=== PATIENT | female | born 1950 | race Caucasian/White ===

== ENCOUNTER 2022-09-01 11:25 | Outpatient (CLI) | payer MEDICARE, BC, SELFPAY ==
--- NOTE | 2022-09-01 11:30 | CRLHL7_ITS ---
For Patients: As a result of the Cures Act, medical imaging exams and procedure reports are released immediately into your electronic medical record. You may view this report before your referring provider. If you have questions, please contact your health care provider. BILATERAL SCREENING MAMMOGRAM WITH COMPUTER-AIDED DETECTION AND TOMOSYNTHESIS TECHNIQUE: CC and MLO views were obtained. These mammographic images have been obtained using full-field digital technique. These mammographic images were interpreted with the benefit of computer-aided detection. Breast Tomosynthesis was used in this interpretation. COMPARISON FILM: 08/27/21, 08/21/20, 08/02/19. FINDINGS: There are scattered areas of fibroglandular density IMPRESSION: There is no radiographic evidence for malignancy. ASSESSMENT: BI-RADS Category 1: Negative RECOMMENDATION: Routine screening mammogram in 1 year. A lay language report of this examination will be provided to the patient. Sherwin Martin M.D. Diagnostic Radiologist [email or web address] / be/Dictated by: Sherwin Martin MD @ 09/02/2022 8:59:00 AM (Electronically Signed)
== END 2022-09-01 11:26 | disposition home or self-care (01) ==
PROVIDERS: PCP Family Medicine; Visit Provider Family Medicine
DX: Z12.31 Encounter for screening mammogram for malignant neoplasm of breast (principal)
CPT/HCPCS: 77063; 77067

== ENCOUNTER 2023-04-17 09:35 | Outpatient (CLI) | payer MEDICARE, BC, SELFPAY | END 2023-04-17 09:36 | disposition home or self-care (01) | LOC: INJ CL 09:35 | PROVIDERS: PCP Family Medicine; Visit Provider Family Medicine | DX: M51.36 Other intervertebral disc degeneration, lumbar region (principal); M54.16 Radiculopathy, lumbar region | CPT/HCPCS: 64483; J1100; Q9966 ==

== ENCOUNTER 2023-10-07 10:05 | Emergency (ER) | payer MEDICARE, BC, SELFPAY ==
[2023-10-07 10:09] VITALS: BP 148/72; PULSE 74; RESP 18; TEMP 36.9; O2SAT 96; BMI 31.1
--- NOTE | 2023-10-07 10:27 | ED_ITS ---
HPI - General Adult General Time Seen by Provider: 10:28 Date Seen: 10/07/23 Chief complaint: Back Injury/Pain Stated complaint: Fell yesterday, back pain Time Seen by Provider: 10/07/23 10:30 Source: patient Mode of arrival: ambulatory Limitations: no limitations History of Present Illness HPI narrative: The patient is a 71 year white female who had history of lumbar laminectomy about a year and half ago for low back pain and leg pain. The patient reports that she fell yesterday on ice and landed on her buttock area and felt some pain in her low back. She has been stiff, but is able to move about, she is moving she feels a little better. Sitting she has fearing she will freeze up. She has no bowel or bladder incontinence fever chills perineal numbness. Presents ER for evaluation. Related Data Home Medications Medication Instructions Recorded Confirmed cholecalciferol (vitamin D3) 50 2,000 unit PO QDAY 11/10/22 10/07/23 mcg (2,000 unit) capsule gabapentin 300 mg capsule 300 mg PO TID 11/10/22 10/07/23 (Neurontin) losartan 50 mg tablet 50 mg PO DAILY 11/10/22 10/07/23 multivitamin 1 tab PO QAM 11/10/22 01/30/23 psyllium 1 tbsp PO ONCE 11/10/22 01/30/23 rosuvastatin 10 mg tablet 10 mg PO DAILY 11/10/22 10/07/23 chlorhexidine gluconate 0.12 % PO 01/26/23 01/30/23 mouthwash estradiol 0.01% (0.1 mg/gram) vaginal 01/26/23 01/30/23 vaginal cream famotidine 40 mg tablet 40 mg PO DAILY 01/26/23 10/07/23 Previous Rx's Medication Instructions Recorded hydrocodone 5 mg-acetaminophen 325 1 tab PO Q6H PRN pain #14 tabs 10/07/23 mg tablet Allergies Allergy/AdvReac Type Severity Reaction Status Date / Time erythromycin base Allergy Severe Hives Verified 04/17/23 10:10 meloxicam Allergy Verified 04/17/23 10:10 codeine AdvReac Intermediate Gastrointestinal Verified 04/17/23 10:10 Upset lisinopril AdvReac Intermediate Cough Verified 04/17/23 10:10 Review of Systems Status of ROS: Reports: 6 or more systems reviewed and unremarkable except as noted in History and below [facility] Medical History Excessive cerumen in both ear canals ?H61.23 - Impacted cerumen, bilateral (ICD-10) AOM (acute otitis media) ?H66.90 - Otitis media, unspecified, unspecified ear (ICD-10) Hyperlipidemia ?E78.5 - Hyperlipidemia, unspecified (ICD-10) Hypertension ?I10 - Essential (primary) hypertension (ICD-10) Radiculitis with lower extremity symptoms (07/25/21) ?M54.10 - Radiculopathy, site unspecified (ICD-10) Cervical intraepithelial neoplasia grade 1 ?N87.0 - Mild cervical dysplasia (ICD-10) Surgical History History of arthroscopy of right knee (03/22/12) ?Z98.890 - Other specified postprocedural states (ICD-10) History of colposcopy ?Z98.890 - Other specified postprocedural states (ICD-10) History of partial hysterectomy (07/2021) ?Z90.711 - Acquired absence of uterus with remaining cervical stump (ICD-10) History of arthroscopy of right shoulder (07/19/18) ?Z98.890 - Other specified postprocedural states (ICD-10) Family History Sister Uterine cancer Father High blood pressure Diabetes Prostate cancer COPD (chronic obstructive pulmonary disease) Macular degeneration Mother Lung cancer Social History Smoking Status: Never smoker Exam Narrative: Exam Narrative: Objective: Vital signs unremarkable other than slightly elevated blood pressure Alert orient x3 Back exam shows midline surgical scar no marked tenderness or bruising. Pelvis is stable. Lower extremities show normal strength sensation, negative straight leg raise bilaterally. Const: Vital Signs, click to edit/add: Vital Signs - 24 hr 10/07/23 10:09 Temperature 98.5 F Pulse Rate [Right Pulse Oximeter] 74 Respiratory Rate 18 Blood Pressure [Ri ght Upper Arm] 148/72 H Pulse Oximetry 96 Oxygen Delivery Me thod Room Air Course Vital Signs Vital signs: Initial Vital Signs Temperature 98.5 F 10/07/23 10:09 Temperature Source Temporal Artery Scan 10/07/23 10:09 Pulse Rate 74 10/07/23 10:09 Respiratory Rate 18 10/07/23 10:09 Blood Pressure 148/72 H 10/07/23 10:09 Blood Pressure Mean 97 10/07/23 10:09 Blood Pressure Position Sitting 10/07/23 10:09 Pulse Oximetry 96 10/07/23 10:09 Oxygen Delivery Method Room Air 10/07/23 10:09 Vital Signs Temperature 98.5 F 10/07/23 10:09 Pulse Rate 74 10/07/23 10:09 Respiratory Rate 18 10/07/23 10:09 Blood Pressure 148/72 H 10/07/23 10:09 Pulse Oximetry 96 10/07/23 10:09 Oxygen Delivery Method Room Air 10/07/23 10:09 Temperature 98.5 F 10/07/23 10:09 Pulse Rate 74 10/07/23 10:09 Respiratory Rate 18 10/07/23 10:09 Blood Pressure 148/72 H 10/07/23 10:09 Pulse Oximetry 96 10/07/23 10:09 Oxygen Delivery Method Room Air 10/07/23 10:09 Medical Decision Making MDM Narrative Medical decision making narrative: [age] white female who is status post lumbar laminectomy about a year and a half ago, with a fall on the ice landing on her buttocks with low back pain. Rule out compression fracture, rule out muscle strain. Will patient will get an x-ray I think that be reasonable to start with. Disposition pending findings. Addendum 10:46 a.m.: The patient has degenerative scoliosis, facet arthropathy, she has the age-indeterminate L1 compression fracture. I think a CT would be appropriate given her fall. Addendum 12:36 p.m. the patient has a CT evidence of a acute L1 compression fracture. Will send her home with a few [place] tablets to take as needed for pain or discomfort. She should follow up with regular doctor next few days. She has no retropulsed fragments in her CT scan. She has no neurologic changes. Recommend light activity, ice to the back. Follow up in next 3-4 days with primary care. light activity. Discharge Plan Discharge Clinical Impression: Low back pain, Fall, Compression fx, lumbar spine Patient Disposition: Home w/ Parent or Adult Condition: Stable Additional Instructions: Light activity, no repetitive bending, [place] as needed for pain, cautioned about sedative effect, follow-up with primary care doctor in the next 3-4 days for reassessment, he may need some physical therapy at some point as well. Activity Level: Light activity Prescriptions: New hydrocodone-acetaminophen 5-325 mg tablet 1 tab PO Q6H PRN (Reason: pain) Qty: 14 0RF No Action estradiol 0.01 % (0.1 mg/gram) cream vaginal famotidine 40 mg tablet 40 mg PO DAILY chlorhexidine gluconate 0.12 % mouthwash PO cholecalciferol (vitamin D3) 50 mcg (2,000 unit) capsule 2,000 unit PO QDAY rosuvastatin 10 mg tablet 10 mg PO DAILY losartan 50 mg tablet 50 mg PO DAILY psyllium Powder 1 tbsp PO ONCE Rx Instructions: mix into at least 8 oz of water or juice before administering multivitamin Tablet 1 tab PO QAM gabapentin [Neurontin] 300 mg capsule 300 mg PO TID Follow Up/Referrals: Pat Keys DO [Primary Care Provider] - Stand Alone Forms: [facility] Info Inst[facility]
--- NOTE | 2023-10-07 10:27 | CRLHL7_ITS ---
For Patients: As a result of the Century Cures Act, medical imaging exams and procedure reports are released immediately into your electronic medical record. You may view this report before your referring provider. If you have questions, please contact your health care provider. INDICATION: Fall with pain TECHNIQUE: Lumbar spine 3 view. COMPARISON: MRI of lumbar spine report on 03/26/2021 FINDINGS: Age-indeterminate compression fracture deformity of the L1 vertebral body; otherwise, the remaining vertebral bodies are within normal limits in height. Dextroscoliotic curvature of the lumbar spine. Normal lumbar lordosis is maintained. There is trace retrolisthesis of L2 on L3. Multilevel intervertebral disc height loss with associated degenerative endplate changes. Multilevel facet arthropathy. No suspicious osseous lesions. Dictated by Jeffry Myles MD @ 10/07/2023 11:18:02 AM (Electronically Signed)
--- NOTE | 2023-10-07 10:46 | CRLHL7_ITS ---
For Patients: As a result of the Century Cures Act, medical imaging exams and procedure reports are released immediately into your electronic medical record. You may view this report before your referring provider. If you have questions, please contact your health care provider. Indication: L1 compression fracture Technique: Noncontrast axial CT of the lumbar spine with coronal and sagittal reformats. Comparison: Lumbar spine x-ray 10/07/2020 Findings: Dextroconvex curvature, with right lateral listhesis at L3-4 and L4-5. Preserved lumbar lordosis, with trace retrolisthesis at L2-3 and L3-4. Acute L1 superior endplate compression fracture, with minor (2 mm) cortical retropulsion, and no evidence of posterior element involvement. No other acute osseous abnormality identified. Decompressive laminectomy changes at L3-4, L4-5 and L5-S1. Aortoiliac atherosclerotic plaquing. Small dense left renal cysts, potentially hemorrhagic versus proteinaceous. Unremarkable included SI joints. T12-L1, L1-L2: No significant neural foraminal or spinal canal stenosis. L2-L3: Mild diffuse disc bulge. No significant neural foraminal or spinal canal stenosis. L3-L4: Mild diffuse disc bulge, mild facet arthropathy. Moderate right and moderately severe left neural foraminal stenosis. Laminectomy decompression of the spinal canal. L4-L5: Mild diffuse disc bulge, facet arthropathy. Mild left, moderately severe right neural foraminal stenosis. Laminectomy decompression of the spinal canal. L5-S1: Mild diffuse disc bulge, osteophytic endplate ridging, facet arthropathy. No left, mild right neural foraminal narrowing. Laminectomy decompression of the spinal canal. Impression: 1. Acute L1 superior endplate compression fracture with mild vertebral height loss and minimal cortical retropulsion. 2. Lumbar spondylosis, with dextroconvex curvature and multilevel spondylolisthesis as detailed. 3. At L3-4, moderate right and moderately severe left neural foraminal stenosis 4. At L4-5, moderately severe right neural foraminal stenosis. Please note that all CT scans at this facility use dose modulation, iterative reconstruction, and/or weight-based dosing when appropriate to reduce radiation dose to as low as reasonably achievable. Dictated by Alla Sanderson MD @ 10/07/2023 12:31:25 PM (Electronically Signed)
== END 2023-10-07 12:47 | disposition home or self-care (01) ==
PROVIDERS: Emergency Provider Family Medicine; PCP Family Medicine
DX: S32.010A Wedge compression fracture of first lumbar vertebra, initial encounter for closed fracture (principal); W00.9XXA Unspecified fall due to ice and snow, initial encounter
CPT/HCPCS: 72100; 72131; 99284

== ENCOUNTER 2024-01-07 15:15 | Outpatient (CLI) | payer MEDICARE, BC, SELFPAY ==
--- NOTE | 2024-01-07 15:20 | MM_ITS ---
Patient: SUELLEN LUKE Facility:?[facility] Patient ID:?[id number] Site Patient ID:?[id number]. Site :?[id number] Study:?XRay-Breast Bilateral 3D W/CAD-01/07/2024 4:13:11 PM Ordering Physician:?Pat Keys Final Report: BILATERAL SCREENING MAMMOGRAM WITH COMPUTER-AIDED DETECTION AND TOMOSYNTHESIS TECHNIQUE: CC and MLO views were obtained. These mammographic images have been obtained using full-field digital technique. These mammographic images were interpreted with the benefit of computer-aided detection. Breast Tomosynthesis was used in this interpretation. COMPARISON FILM: 09/01/22, 08/27/21, 08/21/20. FINDINGS: There are scattered areas of fibroglandular density IMPRESSION: There is no radiographic evidence for malignancy. ASSESSMENT: BI-RADS Category 1: Negative RECOMMENDATION: Routine screening mammogram in 1 year. A lay language report of this examination will be provided to the patient. Sherwin Martin M.D. Diagnostic Radiologist [email or web address] DSM/sp R& Transcribed: 3:23 p.m. SP/Dictated by: Sherwin Martin MD @ 01/08/2024 12:47:00 PM Signed by:?Sherwin Martin MD @01/08/2024 3:54:41 PM (Electronic Signature)
== END 2024-01-07 15:16 | disposition home or self-care (01) ==
LOC: MAMMO 15:17
PROVIDERS: PCP Family Medicine; Visit Provider Family Medicine
DX: Z12.31 Encounter for screening mammogram for malignant neoplasm of breast (principal)
CPT/HCPCS: 77063; 77067

== ENCOUNTER 2024-05-03 16:58 | Emergency (ER) | payer MEDICARE, BC, SELFPAY ==
[2024-05-03] VITALS (23 sets, daily range): BP systolic 135–181; BP diastolic 56–96; PULSE 68–80; RESP 20; TEMP 37.7; O2SAT 92–97; BMI 30.2
--- NOTE | 2024-05-03 17:24 | CRLHL7_ITS ---
For Patients: As a result of the Century Cures Act, medical imaging exams and procedure reports are released immediately into your electronic medical record. You may view this report before your referring provider. If you have questions, please contact your health care provider. INDICATION: Shortness of breath, cough. TECHNIQUE: Chest 2 views. COMPARISON: None. FINDINGS: Cardiovascular and mediastinum: Heart size and vasculature are normal in caliber and appearance. Hiatal hernia. Lungs and pleural spaces: Patchy bibasilar consolidations. No sign of pleural effusion. No pneumothorax. Bones and soft tissues: No significant findings. IMPRESSION: Patchy bibasilar consolidations, possibly atelectasis or aspiration in this patient with hiatal hernia. Dictated by William Casey MD @ 05/03/2024 6:25:29 PM (Electronically Signed)
--- NOTE | 2024-05-03 17:55 | ED.GENADULT ---
HPI - General Adult General Date Seen: 05/03/24 <Silvia Torres MD - Last Filed: 05/04/24 18:46> Chief complaint: Shortness of Breath/Dyspnea <Silvia Torres MD - Last Filed: 05/04/24 18:46> Stated complaint: shortness of breath <Silvia Torres MD - Last Filed: 05/04/24 18:46> Time Seen by Provider: 05/03/24 16:59 <Silvia Torres MD - Last Filed: 05/04/24 18:46> Source: patient <Silvia Torres MD - Last Filed: 05/04/24 18:46> Mode of arrival: ambulatory <Silvia Torres MD - Last Filed: 05/04/24 18:46> Limitations: no limitations <Silvia Torres MD - Last Filed: 05/04/24 18:46> History of Present Illness HPI narrative: Patient is a 73-year-old woman who presents for evaluation of chills and shortness of breath starting last evening. She had a little bit of a cough last night as well although she feels that that is largely improved. She has not recorded a temperature at home. Her chest has felt somewhat tight at times associated with the sensation of difficulty breathing. She has not noted unusual leg pain or swelling. She does not have a history of congestive heart failure, DVT or PE. She does have a history of chronic pain related to back problems, she says she had a fall last summer and sustained a compression fracture and since that time has had more pain, primarily in the left lumbar region. She does have a back brace that she wears sometimes and notes that that can cause her to feel short of breath but she was not wearing it last night or today. She uses medical marijuana for pain control. She has had some nausea and dry heaves, no vomiting, diarrhea, black or bloody stools. Aside from medical marijuana, she does not smoke. She does not drink. Lives at home with her . <iSlvia Torres MD - Last Filed: 05/04/24 18:46> Related Data Home medications: Home Medications ?Medication ?Instructions ?Recorded ?Confirmed cholecalciferol (vitamin D3) 50 2,000 unit PO DAILY 11/10/22 05/05/24 mcg (2,000 unit) capsule gabapentin 300 mg capsule 300 mg PO TID 11/10/22 05/05/24 (Neurontin) multivitamin 1 tab PO QAM 11/10/22 05/05/24 rosuvastatin 10 mg tablet 10 mg PO HS 11/10/22 05/05/24 estradiol 0.01% (0.1 mg/gram) 1 appful vaginal .MO,FRI 01/26/23 05/05/24 vaginal cream famotidine 40 mg tablet 40 mg PO DAILY PRN 01/26/23 05/05/24 losartan 100 mg tablet 100 mg PO DAILY 05/03/24 05/05/24 ondansetron HCl 4 mg tablet 4 mg PO TID PRN nausea and vomiting 05/05/24 05/05/24 Previous Rx's ?Medication ?Instructions ?Recorded apixaban 5 mg (74 tabs) tablets in See Rx Instructions PO .COMPLEX 05/03/24 a dose pack ([employer] DVT-PE Treat #74 ea 30D Start) <Silvia Torres MD - Last Filed: 05/04/24 18:46> Allergies/adverse reactions: Allergies Allergy/AdvReac Type Severity Reaction Status Date / Time erythromycin base Allergy Severe Hives Verified 05/03/24 19:20 meloxicam Allergy Verified 05/03/24 19:20 codeine AdvReac Intermediate Gastrointestinal Verified 05/03/24 19:20 Upset lisinopril AdvReac Intermediate Cough Verified 05/03/24 19:20 <Silvia Torres MD - Last Filed: 05/04/24 18:46> Review of Systems Status of ROS: Reports: 10 or more systems reviewed and unremarkable except as noted in History and below <Silvia Torres MD - Last Filed: 05/04/24 18:46> [facility] Medical History: Medical History (Updated 05/05/24 @ 12:34 by Eneida Mathews PA-C) DVT (deep venous thrombosis) ?I82.409 - Acute embolism and thrombosis of unspecified deep veins of unspecified lower extremity (ICD-10) Pulmonary emboli ?I26.99 - Other pulmonary embolism without acute cor pulmonale (ICD-10) Excessive cerumen in both ear canals ?H61.23 - Impacted cerumen, bilateral (ICD-10) AOM (acute otitis media) ?H66.90 - Otitis media, unspecified, unspecified ear (ICD-10) Hyperlipidemia ?E78.5 - Hyperlipidemia, unspecified (ICD-10) Hypertension ?I10 - Essential (primary) hypertension (ICD-10) Radiculitis with lower extremity symptoms (07/25/21) ?M54.10 - Radiculopathy, site unspecified (ICD-10) Cervical intraepithelial neoplasia grade 1 ?N87.0 - Mild cervical dysplasia (ICD-10) <Silvia Torres MD - Last Filed: 05/04/24 18:46> Surgical History: Surgical History History of arthroscopy of right knee (03/22/12) ?Z98.890 - Other specified postprocedural states (ICD-10) History of colposcopy ?Z98.890 - Other specified postprocedural states (ICD-10) History of partial hysterectomy (07/2021) ?Z90.711 - Acquired absence of uterus with remaining cervical stump (ICD-10) History of arthroscopy of right shoulder (07/19/18) ?Z98.890 - Other specified postprocedural states (ICD-10) <Silvia Torres MD - Last Filed: 05/04/24 18:46> Family History: Family History Sister Uterine cancer Father High blood pressure Diabetes Prostate cancer COPD (chronic obstructive pulmonary disease) Macular degeneration Mother Lung cancer <Silvia Torres MD - Last Filed: 05/04/24 18:46> Social History: Social History What is your current living situation?: I presently have a place to live Problems where you live: no known problems Problems where you live details: NA In the past 12 months, utilities in danger of being shut off: no In past 12 months, lack of transportation kept you from medical appts, meetings, work, or getting things needed for daily living: no In the past 12 mos, have been you worried that your food would run out before you had money to buy more?: never true In the past 12 mos, the food you bought just didn't last and you didn't have money to buy more?: never true Highest level of school completed/degree received: Bachelor's degree Smoking Status: Never smoker Do you use any of these nicotine containing products: Other How often do you have a drink containing alcohol: never How often do you have six or more drinks on one occasion: Never AUDIT-C Alcohol total score: 0 Non-prescribed substance use: marijuana (any form) Caffeine: Yes (Coffee) How often does anyone, including family, friends and others, physically hurt you: never How often does anyone, including family, friends and others, insult or talk down to you: never How often does anyone, including family, friends and others, threaten you with harm: never How often does anyone, including family, friends and others, scream or curse at you: never service: No <Silvia Torres MD - Last Filed: 05/04/24 18:46> Exam Narrative: Exam Narrative: Vital signs as noted above. In general, an alert, well-appearing patient. Breathing easily. Head: Normocephalic, atraumatic. Eyes: Pupils are equal reactive. Extraocular movements are full. Conjunctivae are normal. ENT: Mucous membranes are moist. Throat is normal. Neck: Supple without lymphadenopathy. Heart: Regular rate and rhythm. No murmur or rub. Lungs: Some crackles noted primarily at the right base. Increased work breathing. Abdomen: Soft and nontender. No organomegaly. Extremities: Well perfused. No edema. No calf tenderness. Pulses intact. Neurologic: Patient is alert and oriented to person and place. Speech is fluent. Face is symmetric. Moves all extremities equally. Affect: Normal. Skin: Warm and dry. Well perfused. <Silvia Torres MD - Last Filed: 05/04/24 18:46> Const: Vital Signs, click to edit/add: Vital Signs - 24 hr 05/03/24 19:00 05/03/24 19:02 05/03/24 19:17 Pulse Rate 70 79 Respiratory Rate Blood Pressure 148/56 H Pulse Oximetry 92 95 Oxygen Delivery Me thod 05/03/24 19:30 05/03/24 19:45 05/03/24 20:00 Pulse Rate 74 75 73 Respiratory Rate Blood Pressure Pulse Oximetry 94 95 92 Oxygen Delivery Me thod 05/03/24 20:02 05/03/24 20:03 05/03/24 20:15 Pulse Rate 75 74 74 Respiratory Rate 20 Blood Pressure 171/72 H Pulse Oximetry 94 93 95 Oxygen Delivery Me thod Room Air 05/03/24 20:30 05/03/24 20:45 05/03/24 21:00 Pulse Rate 73 75 74 Respiratory Rate Blood Pressure Pulse Oximetry 95 92 94 Oxygen Delivery Me thod 05/03/24 21:02 05/03/24 21:15 05/03/24 21:30 Pulse Rate 74 75 78 Respiratory Rate Blood Pressure 148/59 H Pulse Oximetry 93 93 96 Oxygen Delivery Me thod 05/03/24 21:45 05/03/24 22:20 Pulse Rate 74 74 Respiratory Rate 20 Blood Pressure 148/59 H Pulse Oximetry 93 94 Oxygen Delivery Me thod <Silvia Torres MD - Last Filed: 05/04/24 18:46> Vital Signs, click to edit/add: Vital Signs - 24 hr 05/03/24 19:00 05/03/24 19:02 05/03/24 19:17 Pulse Rate 70 79 Respiratory Rate Blood Pressure 148/56 H Pulse Oximetry 92 95 Oxygen Delivery Me thod 05/03/24 19:30 05/03/24 19:45 05/03/24 20:00 Pulse Rate 74 75 73 Respiratory Rate Blood Pressure Pulse Oximetry 94 95 92 Oxygen Delivery Me thod 05/03/24 20:02 05/03/24 20:03 05/03/24 20:15 Pulse Rate 75 74 74 Respiratory Rate 20 Blood Pressure 171/72 H Pulse Oximetry 94 93 95 Oxygen Delivery Me thod Room Air 05/03/24 20:30 05/03/24 20:45 05/03/24 21:00 Pulse Rate 73 75 74 Respiratory Rate Blood Pressure Pulse Oximetry 95 92 94 Oxygen Delivery Me thod 05/03/24 21:02 05/03/24 21:15 05/03/24 21:30 Pulse Rate 74 75 78 Respiratory Rate Blood Pressure 148/59 H Pulse Oximetry 93 93 96 Oxygen Delivery Me thod 05/03/24 21:45 05/03/24 22:20 Pulse Rate 74 74 Respiratory Rate 20 Blood Pressure 148/59 H Pulse Oximetry 93 94 Oxygen Delivery Me thod <Jillian Flor MD - Last Filed: 05/03/24 22:04> Documenting provider has reviewed patient's vital signs: yes <Silvia Torres MD - Last Filed: 05/04/24 18:46> Course Course ED Course: An EKG shows a sinus rhythm, ventricular rate of 74. No acute ST segment changes, some artifact in leads 2 and 3 limits interpretation in those leads. Troponin is negative. We labs were notable for a normal lactate, and normal BNP, CRP of 4.3 and elevated D-dimer of 3.24. Troponin was 0. I did a chest x-ray initially which was notable for some patchy bibasilar infiltrate, read as follows by Radiology:FINDINGS: Cardiovascular and mediastinum: Heart size and vasculature are normal in caliber and appearance. Hiatal hernia. Lungs and pleural spaces: Patchy bibasilar consolidations. No sign of pleural effusion. No pneumothorax. Bones and soft tissues: No significant findings. IMPRESSION: Patchy bibasilar consolidations, possibly atelectasis or aspiration in this patient with hiatal hernia. However, D-dimer was markedly elevated at over 3, so I did elect to do a CT scan with contrast. This shows by my review bilateral pulmonary emboli, greatest in the right lower lobe. Radiology read this as moderate clot burden with some ground-glass changes in the right lower lung consistent with evolving pulmonary infarcts. I discussed this diagnosis at length with patient and her . Her PESI score puts her at low risk, class 2. She does not have any high risk features, has not been requiring any pain medication or oxygen. Initially she thought she wanted to stay in hospital due to shortness of breath, but then changed her mind and decided she would rather go home. Medically I think this is not unreasonable. I did order bilateral lower extremity Dopplers which are pending at this time. If she has residual clot in her legs then I do think that would change my recommendation to inpatient treatment with IV heparin. If those are negative plan would be to go home on Eliquis with close outpatient follow-up. Signed out to Dr. Flor for final disposition and plan. <Silvia Torres MD - Last Filed: 05/04/24 18:46> Reevaluation(s) Additional Reevaluation(s): 2099 - I took over care from Dr. Torres. At 2129 I personally reviewed and interpreted bilateral lower extremity ultrasound and discussed results with radiologist which demonstrates acute occlusive DVT within the right popliteal vein. No evidence of DVT in left lower extremity. Patient remains hemodynamically stable. I discussed patient management with internal medicine hospitalist who recommends discharge with dose of Lovenox and prescription for oral anticoagulation. Patient does not meet inpatient criteria however did offer observation admission for IV heparin. I discussed results with patient and family, discussed observation versus discharge home. Patient prefers to be discharged home. Patient remains hemodynamically stable, no chest pain, no shortness of breath, no tachycardia, no hypoxia. Patient is able to ambulate without difficulty. 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 Recommend close outpatient follow-up with her primary care provider. Return precautions discussed. Patient understands and agrees the plan. <Jillian Flor MD - Last Filed: 05/03/24 22:04> Vital Signs Vital signs: Initial Vital Signs Temperature 99.9 F H 05/03/24 17:07 Temperature Source Temporal Artery Scan 05/03/24 17:07 Pulse Rate 80 05/03/24 17:07 Respiratory Rate 20 05/03/24 17:07 Blood Pressure 181/93 H 05/03/24 17:07 Blood Pressure Mean 122 H 05/03/24 17:07 Pulse Oximetry 97 05/03/24 17:07 Oxygen Delivery Method Room Air 05/03/24 17:07 Vital Signs Temperature 99.9 F H 05/03/24 17:07 Pulse Rate 80 05/03/24 17:07 Respiratory Rate 20 05/03/24 17:07 Blood Pressure 181/93 H 05/03/24 17:07 Pulse Oximetry 97 05/03/24 17:07 Oxygen Delivery Method Room Air 05/03/24 17:07 Temperature 99.9 F H 05/03/24 17:07 Pulse Rate 74 05/03/24 22:20 Respiratory Rate 20 05/03/24 22:20 Blood Pressure 148/59 H 05/03/24 22:20 Pulse Oximetry 94 05/03/24 22:20 Oxygen Delivery Method Room Air 05/03/24 20:02 <Silvia Torres MD - Last Filed: 05/04/24 18:46> Initial Vital Signs Temperature 99.9 F H 05/03/24 17:07 Temperature Source Temporal Artery Scan 05/03/24 17:07 Pulse Rate 80 05/03/24 17:07 Respiratory Rate 20 05/03/24 17:07 Blood Pressure 181/93 H 05/03/24 17:07 Blood Pressure Mean 122 H 05/03/24 17:07 Pulse Oximetry 97 05/03/24 17:07 Oxygen Delivery Method Room Air 05/03/24 17:07 Vital Signs Temperature 99.9 F H 05/03/24 17:07 Pulse Rate 80 05/03/24 17:07 Respiratory Rate 20 05/03/24 17:07 Blood Pressure 181/93 H 05/03/24 17:07 Pulse Oximetry 97 05/03/24 17:07 Oxygen Delivery Method Room Air 05/03/24 17:07 Temperature 99.9 F H 05/03/24 17:07 Pulse Rate 74 05/03/24 22:20 Respiratory Rate 20 05/03/24 22:20 Blood Pressure 148/59 H 05/03/24 22:20 Pulse Oximetry 94 05/03/24 22:20 Oxygen Delivery Method Room Air 05/03/24 20:02 <Jillian Flor MD - Last Filed: 05/03/24 22:04> Medications Administered Medications: Discontinued Medications Generic Name Dose Route Start Last Admin Trade Name Freq PRN Reason Stop Dose Admin Enoxaparin Sodium 74.843 mg 05/03/24 21:56 05/03/24 22:25 Enoxaparin 80 Mg/0.8 Ml Inj SUBCUT 05/03/24 21:57 74.843 mg ONCE STA Administration <Silvia Torres MD - Last Filed: 05/04/24 18:46> Discontinued Medications Generic Name Dose Route Start Last Admin Trade Name Freq PRN Reason Stop Dose Admin Enoxaparin Sodium 74.843 mg 05/03/24 21:56 05/03/24 22:25 Enoxaparin 80 Mg/0.8 Ml Inj SUBCUT 05/03/24 21:57 74.843 mg ONCE STA Administration <Jillian Flor MD - Last Filed: 05/03/24 22:04> Medical Decision Making Lab Data Labs: Lab Results 05/03/24 05/03/24 05/03/24 Range/Units 17:25 17:40 17:40 WBC 14.11 H (4.50-11.00) K/uL RBC 4.86 (4.00-5.20) m/uL Hgb 13.5 (12.0-16.0) gm/dL Hct 42.6 (33.0-51.0) % MCV 88 (80-100) fL MCH 28 (26-34) pg MCHC 32 (32-36) gm/dL RDW Coeff of Ursula 13.5 (11.5-15.5) % Plt Count 240 (140-440) K/uL Neut % (Auto) 83.3 H (42.0-72.0) % Lymph % (Auto) 8.8 L (20-44) % [place] % (Auto) 7.1 (0.0-11.0) % Eos % (Auto) 0.3 (0.0-7.0) % Baso % (Auto) 0.2 (0.0-3.0) % Neut # (Auto) 11.80 H (1.7-7.0) K/uL Lymph # (Auto) 1.20 (0.90-2.90) K/uL [place] # (Auto) 1.00 H (0.00-0.90) K/UL Eos # (Auto) 0.00 (0.00-0.50) K/uL Baso # (Auto) 0.00 (0.00-0.30) K/uL Abs Immat Gran (auto) 0.00 (0.00-0.30) K/uL Imm/Tot Granulo (auto) 0.3 % D-Dimer Quant (PE/DVT) 3.24 H (0.00-0.50) ug/ml Sodium 137 (135-149) mmol/L Potassium 3.8 (3.6-5.1) mmol/L Chloride 103 (96-114) mmol/L Carbon Dioxide 25 (20-32) mmol/L Anion Gap 9 (7-15) mEq/L BUN 11 (7-30) mg/dL Creatinine 0.8 (0.5-1.5) mg/dL Estimated Creat Clear 40.22 Estimated GFR 78 ml/min Glucose 129 H (60-115) mg/dL Lactate 1.0 (0.5-1.9) mmol/L Calcium 9.4 (8.4-10.6) mg/dL C-Reactive Protein 4.3 H Cancelled (0.5-1.0) mg/dL NT-Pro-B Natriuret Pep 170 pg/mL TSH (0.270-4.200) uIU/mL Urine Color (Yellow) Urine Appearance (Clear) Urine pH (5.0-8.5) Ur Specific [place] (1.000-1.030) Urine Protein (Negative) Urine Glucose (UA) (Negative) Urine Ketones (Negative) Urine Blood (Negative) Urine Nitrite (Negative) Urine Bilirubin (Negative) Urine Urobilinogen (0.2-1.0) Ur Leukocyte Esterase (Negative) Urine RBC (0-2) Urine WBC (0-5) Ur Squamous Epith Cells (None-Few) Urine Bacteria (None) Fine Granular Casts (None) POC Troponin I 0.00 L (0.01-0.04) ng/ml 05/03/24 05/03/24 Range/Units 17:40 19:14 WBC (4.50-11.00) K/uL RBC (4.00-5.20) m/uL Hgb (12.0-16.0) gm/dL Hct (33.0-51.0) % MCV (80-100) fL MCH (26-34) pg MCHC (32-36) gm/dL RDW Coeff of Ursula (11.5-15.5) % Plt Count (140-440) K/uL Neut % (Auto) (42.0-72.0) % Lymph % (Auto) (20-44) % [place] % (Auto) (0.0-11.0) % Eos % (Auto) (0.0-7.0) % Baso % (Auto) (0.0-3.0) % Neut # (Auto) (1.7-7.0) K/uL Lymph # (Auto) (0.90-2.90) K/uL [place] # (Auto) (0.00-0.90) K/UL Eos # (Auto) (0.00-0.50) K/uL Baso # (Auto) (0.00-0.30) K/uL Abs Immat Gran (auto) (0.00-0.30) K/uL Imm/Tot Granulo (auto) % D-Dimer Quant (PE/DVT) (0.00-0.50) ug/ml Sodium (135-149) mmol/L Potassium (3.6-5.1) mmol/L Chloride (96-114) mmol/L Carbon Dioxide (20-32) mmol/L Anion Gap (7-15) mEq/L BUN (7-30) mg/dL Creatinine (0.5-1.5) mg/dL Estimated Creat Clear Estimated GFR ml/min Glucose (60-115) mg/dL Lactate (0.5-1.9) mmol/L Calcium (8.4-10.6) mg/dL C-Reactive Protein (0.5-1.0) mg/dL NT-Pro-B Natriuret Pep Cancelled pg/mL TSH 1.250 (0.270-4.200) uIU/mL Urine Color Yellow (Yellow) Urine Appearance Clear (Clear) Urine pH 6.0 (5.0-8.5) Ur Specific [place] 1.020 (1.000-1.030) Urine Protein Trace A (Negative) Urine Glucose (UA) Negative (Negative) Urine Ketones 1+ A (Negative) Urine Blood 2+ A (Negative) Urine Nitrite Negative (Negative) Urine Bilirubin Negative (Negative) Urine Urobilinogen 0.2 (0.2-1.0) Ur Leukocyte Esterase Negative (Negative) Urine RBC 0-2 (0-2) Urine WBC 10-25 A (0-5) Ur Squamous Epith Cells Moderate A (None-Few) Urine Bacteria Moderate A (None) Fine Granular Casts Few A (None) POC Troponin I (0.01-0.04) ng/ml <Silvia Torres MD - Last Filed: 05/04/24 18:46> Lab Results 05/03/24 05/03/24 05/03/24 Range/Units 17:25 17:40 17:40 WBC 14.11 H (4.50-11.00) K/uL RBC 4.86 (4.00-5.20) m/uL Hgb 13.5 (12.0-16.0) gm/dL Hct 42.6 (33.0-51.0) % MCV 88 (80-100) fL MCH 28 (26-34) pg MCHC 32 (32-36) gm/dL RDW Coeff of Ursula 13.5 (11.5-15.5) % Plt Count 240 (140-440) K/uL Neut % (Auto) 83.3 H (42.0-72.0) % Lymph % (Auto) 8.8 L (20-44) % [place] % (Auto) 7.1 (0.0-11.0) % Eos % (Auto) 0.3 (0.0-7.0) % Baso % (Auto) 0.2 (0.0-3.0) % Neut # (Auto) 11.80 H (1.7-7.0) K/uL Lymph # (Auto) 1.20 (0.90-2.90) K/uL [place] # (Auto) 1.00 H (0.00-0.90) K/UL Eos # (Auto) 0.00 (0.00-0.50) K/uL Baso # (Auto) 0.00 (0.00-0.30) K/uL Abs Immat Gran (auto) 0.00 (0.00-0.30) K/uL Imm/Tot Granulo (auto) 0.3 % D-Dimer Quant (PE/DVT) 3.24 H (0.00-0.50) ug/ml Sodium 137 (135-149) mmol/L Potassium 3.8 (3.6-5.1) mmol/L Chloride 103 (96-114) mmol/L Carbon Dioxide 25 (20-32) mmol/L Anion Gap 9 (7-15) mEq/L BUN 11 (7-30) mg/dL Creatinine 0.8 (0.5-1.5) mg/dL Estimated Creat Clear 40.22 Estimated GFR 78 ml/min Glucose 129 H (60-115) mg/dL Lactate 1.0 (0.5-1.9) mmol/L Calcium 9.4 (8.4-10.6) mg/dL C-Reactive Protein 4.3 H Cancelled (0.5-1.0) mg/dL NT-Pro-B Natriuret Pep 170 pg/mL TSH (0.270-4.200) uIU/mL Urine Color (Yellow) Urine Appearance (Clear) Urine pH (5.0-8.5) Ur Specific [place] (1.000-1.030) Urine Protein (Negative) Urine Glucose (UA) (Negative) Urine Ketones (Negative) Urine Blood (Negative) Urine Nitrite (Negative) Urine Bilirubin (Negative) Urine Urobilinogen (0.2-1.0) Ur Leukocyte Esterase (Negative) Urine RBC (0-2) Urine WBC (0-5) Ur Squamous Epith Cells (None-Few) Urine Bacteria (None) Fine Granular Casts (None) POC Troponin I 0.00 L (0.01-0.04) ng/ml 05/03/24 05/03/24 Range/Units 17:40 19:14 WBC (4.50-11.00) K/uL RBC (4.00-5.20) m/uL Hgb (12.0-16.0) gm/dL Hct (33.0-51.0) % MCV (80-100) fL MCH (26-34) pg MCHC (32-36) gm/dL RDW Coeff of Ursula (11.5-15.5) % Plt Count (140-440) K/uL Neut % (Auto) (42.0-72.0) % Lymph % (Auto) (20-44) % [place] % (Auto) (0.0-11.0) % Eos % (Auto) (0.0-7.0) % Baso % (Auto) (0.0-3.0) % Neut # (Auto) (1.7-7.0) K/uL Lymph # (Auto) (0.90-2.90) K/uL [place] # (Auto) (0.00-0.90) K/UL Eos # (Auto) (0.00-0.50) K/uL Baso # (Auto) (0.00-0.30) K/uL Abs Immat Gran (auto) (0.00-0.30) K/uL Imm/Tot Granulo (auto) % D-Dimer Quant (PE/DVT) (0.00-0.50) ug/ml Sodium (135-149) mmol/L Potassium (3.6-5.1) mmol/L Chloride (96-114) mmol/L Carbon Dioxide (20-32) mmol/L Anion Gap (7-15) mEq/L BUN (7-30) mg/dL Creatinine (0.5-1.5) mg/dL Estimated Creat Clear Estimated GFR ml/min Glucose (60-115) mg/dL Lactate (0.5-1.9) mmol/L Calcium (8.4-10.6) mg/dL C-Reactive Protein (0.5-1.0) mg/dL NT-Pro-B Natriuret Pep Cancelled pg/mL TSH 1.250 (0.270-4.200) uIU/mL Urine Color Yellow (Yellow) Urine Appearance Clear (Clear) Urine pH 6.0 (5.0-8.5) Ur Specific [place] 1.020 (1.000-1.030) Urine Protein Trace A (Negative) Urine Glucose (UA) Negative (Negative) Urine Ketones 1+ A (Negative) Urine Blood 2+ A (Negative) Urine Nitrite Negative (Negative) Urine Bilirubin Negative (Negative) Urine Urobilinogen 0.2 (0.2-1.0) Ur Leukocyte Esterase Negative (Negative) Urine RBC 0-2 (0-2) Urine WBC 10-25 A (0-5) Ur Squamous Epith Cells Moderate A (None-Few) Urine Bacteria Moderate A (None) Fine Granular Casts Few A (None) POC Troponin I (0.01-0.04) ng/ml <Jillian Flor MD - Last Filed: 05/03/24 22:04> Discharge Plan Discharge Clinical Impression: Pulmonary emboli, DVT (deep venous thrombosis) <Silvia Torres MD - Last Filed: 05/04/24 18:46> Patient Disposition: Home, Self-Care <Silvia Torres MD - Last Filed: 05/04/24 18:46> Condition: Stable <Silvia Torres MD - Last Filed: 05/04/24 18:46> Instructions: Pulmonary Embolism (ED), Deep Vein Thrombosis (ED) <Silvia Torres MD - Last Filed: 05/04/24 18:46> Additional Instructions: Anticoagulation as prescribed. You should follow-up with your primary doctor in the coming week for recheck. If at any time you have severe shortness of breath, severe pain, new symptoms such as fevers, lightheadedness or fainting, or other worsening, return to the emergency department. <Silvia Torres MD - Last Filed: 05/04/24 18:46> Prescriptions: New Eliquis DVT-PE Treat 30D Start 5 mg (74 tabs) tablets,dose pack See Rx Instructions .ROUTE .COMPLEX Qty: 74 0RF Rx Instructions: orally per package directions No Action estradiol 0.01 % (0.1 mg/gram) cream 1 appful vaginal .MO,FRI famotidine 40 mg tablet 40 mg PO DAILY PRN cholecalciferol (vitamin D3) 50 mcg (2,000 unit) capsule 2,000 unit PO DAILY rosuvastatin 10 mg tablet 10 mg PO HS multivitamin Tablet 1 tab PO QAM gabapentin [Neurontin] 300 mg capsule 300 mg PO TID losartan 100 mg tablet 100 mg PO DAILY ondansetron HCl 4 mg tablet 4 mg PO TID PRN (Reason: nausea and vomiting) <Silvia Torres MD - Last Filed: 05/04/24 18:46> Follow Up/Referrals: Pat Keys DO [Primary Care Provider] - <Silvia Torres MD - Last Filed: 05/04/24 18:46> Stand Alone Forms: [facility] Info Instructions <Silvia Torres MD - Last Filed: 05/04/24 18:46>
[2024-05-03 17:58] LABS: Basophils Percent Auto 0.2 % (0.0-3.0); Eosinophils Percent Auto 0.3 % (0.0-7.0); Hematocrit 42.6 % (33.0-51.0); Hemoglobin* 13.5 gm/dL (12.0-16.0); Immature Granulocytes Pct Auto 0.3 %; Lymphocytes Percent Auto 8.8 % (20-44); Mean Corpuscular HGB Conc 32 gm/dL (32-36); Mean Corpuscular Hemoglobin 28 pg (26-34); Mean Corpuscular Volume 88 fL (80-100); Monocytes Percent Auto 7.1 % (0.0-11.0); Neutrophils Percent Auto 83.3 % (42.0-72.0); Platelet Count* 240 K/uL (140-440); RDW Coefficient of Variation % 13.5 % (11.5-15.5); Red Blood Count 4.86 m/uL (4.00-5.20); White Blood Count* 14.11 K/uL (4.50-11.00)
[2024-05-03 18:24] LABS: Chloride* 103 mmol/L (96-114); Potassium* 3.8 mmol/L (3.6-5.1); Sodium* 137 mmol/L (135-149)
[2024-05-03 18:27] LABS: Anion Gap 9 mEq/L (7-15); Blood Urea Nitrogen* 11 mg/dL (7-30); Carbon Dioxide* 25 mmol/L (20-32); Creatinine* 0.8 mg/dL (0.5-1.5); Est. Creatinine Clearance* 40.22; Estimated Glomerular Filt Rate 78 ml/min
[2024-05-03 18:28] LABS: Calcium* 9.4 mg/dL (8.4-10.6); D Dimer Quantitative* 3.24 ug/ml (0.00-0.50); Glucose* 129 mg/dL (60-115); Slide Review Reflex No
[2024-05-03 18:30] LABS: C Reactive Protein* 4.3 mg/dL (0.5-1.0)
--- NOTE | 2024-05-03 18:32 | CRLHL7_ITS ---
For Patients: As a result of the Century Cures Act, medical imaging exams and procedure reports are released immediately into your electronic medical record. You may view this report before your referring provider. If you have questions, please contact your health care provider. INDICATION: Shortness of breath, elevated D-dimer. TECHNIQUE: CT chest PE was acquired with 95 cc Isovue 370 IV contrast. COMPARISON: None. FINDINGS: Heart and vasculature: Contrast opacification of the pulmonary arterial tree is adequate. Moderate burden of bilateral acute pulmonary emboli within scattered lobar, segmental, and subsegmental branches, right greater than left. The largest clot burden is within the right lower lobe. No evidence of right heart strain. Mild cardiomegaly. No pericardial effusion. Thoracic aorta and pulmonary artery are normal in caliber. Lungs and pleura: Large area of ground-glass opacity within the right lower lobe base. Mild dependent atelectasis versus scarring in left lower lobe base. No pleural effusion or pneumothorax. Lymph nodes/mediastinum: No mediastinal, hilar, or axillary adenopathy. Large hiatal hernia. Chest wall: No masses. Upper abdomen: Indeterminate 1 cm hyperdense lesion arising from the left kidney superior pole. Bones: Chronic-appearing [id number] L1 compression fracture. No acute findings. IMPRESSION: 1. Moderate burden of bilateral acute pulmonary emboli, greatest burden within the right lower lobe. No CT evidence of right heart strain. Large ground-glass opacity within the right lower lobe base likely represents developing pulmonary infarct. 2. Indeterminate 1 cm hyperdense lesion arising from the left kidney superior pole. Recommend dedicated outpatient renal CT or MRI for further characterization. 3. Large hiatal hernia. Findings discussed with Dr. Torres at 6:01 PM PST on 05/03/2024. Please note that all CT scans at this facility use dose modulation, iterative reconstruction, and/or weight-based dosing when appropriate to reduce radiation dose to as low as reasonably achievable. Dictated by Rony Vela MD @ 05/03/2024 8:02:21 PM (Electronically Signed)
[2024-05-03 18:39] LABS: NT Pro B Type NatriureticPept* 170 pg/mL
[2024-05-03 19:23] LABS: Appearance Urine Clear (Clear); Bilirubin Urine Negative (Negative); Blood Urine 2+ (Negative); Color Urine Yellow (Yellow); Glucose Urine Negative (Negative); Ketones Urine 1+ (Negative); Leukocyte Esterase Urine Negative (Negative); Nitrite Urine Negative (Negative); Protein Urine Trace (Negative); Urobilinogen Urine 0.2 (0.2-1.0)
--- NOTE | 2024-05-03 20:05 | CRLHL7_ITS ---
For Patients: As a result of the Century Cures Act, medical imaging exams and procedure reports are released immediately into your electronic medical record. You may view this report before your referring provider. If you have questions, please contact your health care provider. INDICATION: History of pulmonary embolism. Evaluate for deep vein thrombus. TECHNIQUE: Bilateral lower extremity Doppler venous ultrasound examination was performed. Grayscale and color Doppler images were obtained. COMPARISON: None. FINDINGS: RIGHT LOWER EXTREMITY: Common femoral vein: Fully compressible. No deep vein thrombus. Normal flow and response to augmentation on color Doppler imaging. Superficial femoral vein: Fully compressible. No deep vein thrombus. Normal flow on color Doppler imaging. Deep femoral vein: No deep vein thrombus Popliteal vein: Noncompressible due to an intraluminal filling defect. Lower calf: The visualized posterior tibial and peroneal veins are fully compressible. No deep vein thrombus. Normal flow and response to augmentation on color Doppler imaging. Superficial veins: The superficial veins, including the greater saphenous vein, remain patent and are fully compressible. Soft tissues: No popliteal fossa fluid collection identified. LEFT LOWER EXTREMITY: Common femoral vein: Fully compressible. No deep vein thrombus. Normal flow and response to augmentation on color Doppler imaging. Superficial femoral vein: Fully compressible. No deep vein thrombus. Normal flow on color Doppler imaging. Deep femoral vein: No deep vein thrombus Popliteal vein: Fully compressible. No deep vein thrombus. Normal flow on color Doppler imaging. Lower calf: The visualized posterior tibial and peroneal veins are fully compressible. No deep vein thrombus. Normal flow and response to augmentation on color Doppler imaging. Superficial veins: The superficial veins, including the greater saphenous vein, remain patent and are fully compressible. Soft tissues: No popliteal fossa fluid collection identified. IMPRESSION: Acute occlusive deep vein thrombus within the right popliteal vein. Dictated by Betito Cook MD @ 05/03/2024 9:29:00 PM (Electronically Signed)
[2024-05-03 20:10] LABS: Bacteria Urine Moderate; Fine Granular Casts Urine Few; RBC Urine 0-2 (0-2); Squamous Epithelial Cell Urine Moderate (None-Few)
[2024-05-03] MEDS: ENOXAPARIN 80 MG/0.8 ML INJ 74.843 MG SUBCUT (22:25)
== END 2024-05-03 22:30 | disposition home or self-care (01) ==
PROVIDERS: Emergency Provider Emergency Medicine; PCP Family Medicine
DX: J18.9 Pneumonia, unspecified organism (principal); I26.99 Other pulmonary embolism without acute cor pulmonale
CPT/HCPCS: 36415; 71046; 71275; 80048; 81001; 83605; 83880; 84443; 84484; 85025; 85379; 86140; 87040; 87086; 93005; 93970; 99284; 99285; J1650; Q9967

== ENCOUNTER 2024-05-04 08:18 | Emergency (ER) | payer MEDICARE, BC, SELFPAY ==
[2024-05-04] VITALS (42 sets, daily range): BP systolic 122–161; BP diastolic 57–72; PULSE 66–81; RESP 10–18; TEMP 37.1; O2SAT 88–97; BMI 30.2
--- NOTE | 2024-05-04 08:24 | ED_ITS ---
HPI - General Adult General Date Seen: 05/04/24 Chief complaint: Nausea/Vomiting Stated complaint: Shortness of breath, nauseous Time Seen by Provider: 05/04/24 08:23 History of Present Illness HPI narrative: 73-year-old female with history of chronic low back pain and lumbar compression fracture ( treated with medical marijuana), hypertension, hyperlipidemia, cervical dysplasia,, she was seen in the ER yesterday on 05/03. She had presented for chills and shortness of breath , coughbeginning yesterday evening. in the ER yesterday vital signs showed blood pressure 181/93, pulseox 94-97, pulse rate in the 70s. Workup in ER yesterday: WBC 14.1, hemoglobin 13.5, platelet 240 sodium 137, potassium 3.8, chloride 103, bicarb 25, BUN 11, creatinine 0.8 CRP 4.3 BNP 170 urinalysis 10-25 WBC, moderate squames, negative nitrite, negative leukocyte esterase, 0-2 RBC TSH 1.2 Lower Extremity US IMPRESSION: Acute occlusive deep vein thrombus within the right popliteal vein. XR Chest IMPRESSION: Patchy bibasilar consolidations, possibly atelectasis or aspiration in this patient with hiatal hernia. CTA PE Chest: IMPRESSION: 1. Moderate burden of bilateral acute pulmonary emboli, greatest burden within the right lower lobe. No CT evidence of right heart strain. Large ground-glass opacity within the right lower lobe base likely represents developing pulmonary infarct. 2. Indeterminate 1 cm hyperdense lesion arising from the left kidney superior pole. Recommend dedicated outpatient renal CT or MRI for further characterization. 3. Large hiatal hernia. history from the patient is that She does have chronic low back pain, chronic microscopic hematuria. She normally wears a brace for her low back pain and feels short of breath when she wears the brace because it compresses her diaphragm and ribs. She knows that she has been short of breath during. When she wears the brace, at least since last October. However this week she has noted shortness of breath even when she is not wearing the brace. Since Thursday she has been sick. Thursday evening she began to feel unwell with body aches, headache, chills. She also developed a nonproductive cough. She has also been nauseous since yesterday. No vomiting. No diarrhea. She has increased pain in her low back as well as body aches and also in particular she is having pain in her right flank/ lower ribs and down into her right low back. she was seen In the ER yesterday. it seems like her recollection of events is little bit cloudy and unclear. She had blood clots possibly in her leg or her liver, she can not remember where. They discussed possible admission but ultimately since it would be an observation she decided to go home. She knew she was feeling weak and nauseous since she was not sure she would be able to manage home but she did not want stay in the hospital with an undetermined observation bill. She went home. Overnight she had ongoing chills and nausea. She is having bad pain in her right side of her body (in the right flank radiating down down toward the right hip and sometimes she do across to her midportion of her low back ). She is not really having chest pain or rib pain. She still mildly short of breath. Still occasional cough, nonproductive. Her body hurts to cough. she has had chills but no objective fevers. She has been nauseous with no vomiting. No diarrhea. She has not really made any urine aside from a few drops of urine yesterday in the ER. She is just feeling too weak at home and to nauseous so had to come back here to the ER this morning. She received a shot of Lovenox yesterday in the ER but has not had time to get to the pharmacy this morning to get her Eliquis. Although yesterday she said she had not had any recent travel she does recall a plane flight to [place] and back about 6 weeks ago around a week a mother's Day. Otherwise no recent immobilization. She also recalls that she was having some blood in her urine last winter so was referred to urologist ( in [place] ). She apparently had an outpatient workup that included a cystoscopy and biopsies of her kidneys from inside that were apparently benign. She had a few weeks of urinary tract symptoms after that procedure but then got better. She is not currently having any urgency, frequency, dysuria, or visible hematuria. Related Data Home Medications ?Medication ?Instructions ?Recorded ?Confirmed cholecalciferol (vitamin D3) 50 2,000 unit PO QDAY 11/10/22 05/03/24 mcg (2,000 unit) capsule gabapentin 300 mg capsule 300 mg PO TID 11/10/22 05/03/24 (Neurontin) losartan 50 mg tablet 50 mg PO DAILY 11/10/22 10/07/23 multivitamin 1 tab PO QAM 11/10/22 05/03/24 psyllium 1 tbsp PO ONCE 11/10/22 05/03/24 rosuvastatin 10 mg tablet 10 mg PO DAILY 11/10/22 05/03/24 chlorhexidine gluconate 0.12 % PO 01/26/23 01/30/23 mouthwash estradiol 0.01% (0.1 mg/gram) vaginal 01/26/23 01/30/23 vaginal cream famotidine 40 mg tablet 40 mg PO DAILY 01/26/23 05/03/24 losartan 100 mg tablet 100 mg PO DAILY 05/03/24 05/03/24 Previous Rx's ?Medication ?Instructions ?Recorded hydrocodone 5 mg-acetaminophen 325 1 tab PO Q6H PRN pain #14 tabs 10/07/23 mg tablet apixaban 5 mg (74 tabs) tablets in See Rx Instructions PO .COMPLEX 05/03/24 a dose pack (Osmosis DVT-PE Treat #74 ea 30D Start) ondansetron HCl 4 mg tablet 4 mg PO TID #10 tabs 05/04/24 Allergies Allergy/AdvReac Type Severity Reaction Status Date / Time erythromycin base Allergy Severe Hives Verified 05/03/24 19:20 meloxicam Allergy Verified 05/03/24 19:20 codeine AdvReac Intermediate Gastrointestinal Verified 05/03/24 19:20 Upset lisinopril AdvReac Intermediate Cough Verified 05/03/24 19:20 [facility] Medical History Excessive cerumen in both ear canals ?H61.23 - Impacted cerumen, bilateral (ICD-10) AOM (acute otitis media) ?H66.90 - Otitis media, unspecified, unspecified ear (ICD-10) Hyperlipidemia ?E78.5 - Hyperlipidemia, unspecified (ICD-10) Hypertension ?I10 - Essential (primary) hypertension (ICD-10) Radiculitis with lower extremity symptoms (07/25/21) ?M54.10 - Radiculopathy, site unspecified (ICD-10) Cervical intraepithelial neoplasia grade 1 ?N87.0 - Mild cervical dysplasia (ICD-10) Surgical History History of arthroscopy of right knee (03/22/12) ?Z98.890 - Other specified postprocedural states (ICD-10) History of colposcopy ?Z98.890 - Other specified postprocedural states (ICD-10) History of partial hysterectomy (07/2021) ?Z90.711 - Acquired absence of uterus with remaining cervical stump (ICD-10) History of arthroscopy of right shoulder (07/19/18) ?Z98.890 - Other specified postprocedural states (ICD-10) Family History Sister Uterine cancer Father High blood pressure Diabetes Prostate cancer COPD (chronic obstructive pulmonary disease) Macular degeneration Mother Lung cancer Social History Smoking Status: Current some day smoker Do you use any of these nicotine containing products: Other How often do you have a drink containing alcohol: never How often do you have six or more drinks on one occasion: Never AUDIT-C Alcohol total score: 0 Non-prescribed substance use: marijuana (any form) Exam Narrative: Exam Narrative: Constitutional: Appears well-developed and well-nourished. Alert. Conversant. Tired appearing and looks worn out, but overall, not overly toxic appearing. HENT: Head: Atraumatic. Nose: Nose normal. Mouth/Throat: Oral mucosa is clear but dry. no trismus. Pharynx normal. Tonsils symmetric. No tonsillar enlargement, erythema, or exudate. Eyes: Conjunctivae normal. EOM normal. Pupils equal, round, and reactive to light. No scleral icterus. Neck: Normal range of motion. Neck supple. No tracheal deviation present. Cardiovascular: Normal rate, regular rhythm. No gallop. No friction rub. No murmur heard. Symmetric radial and PTartery pulses Pulmonary/Chest: Effort normal. No stridor. No respiratory distress. No wheezes. right> left basilar rales. No rhonchi . No tenderness. Abdominal: Soft. Bowel sounds normal. No distension. No mass. right CVA tenderness but no anterior tenderness. No rebound. No guarding. Musculoskeletal: RUE: Normal range of motion. No tenderness. No deformity LUE: Normal range of motion. No tenderness. No deformity RLE: Normal range of motion. trace calf edema. No tenderness. No deformity LLE: Normal range of motion. No edema. No tenderness. No deformity Neurological: Alert and oriented to person, place, and time. Normal strength. CN II-VII intact. No sensory deficit. GCS eye subscore is 4. GCS verbal subscore is 5. GCS motor subscore is 6. Normal coordination Skin: Skin is warm and dry. No rash noted. No pallor. Normal capillary refill. Psychiatric: Normal mood. Normal affect. Const: Vital Signs, click to edit/add: Vital Signs - 24 hr 05/04/24 08:30 05/04/24 08:30 05/04/24 08:31 Temperature 98.7 F Pulse Rate 77 76 Pulse Rate [Pulse Oximeter] 76 Respiratory Rate 18 Blood Pressure 138/72 Blood Pressure [Ri ght Upper Arm] 138/72 Pulse Oximetry 93 93 93 Oxygen Delivery Me thod Room Air Oxygen Flow Rate 05/04/24 08:45 05/04/24 09:00 05/04/24 09:15 Temperature Pulse Rate 79 79 81 Pulse Rate [Pulse Oximeter] Respiratory Rate Blood Pressure Blood Pressure [Ri ght Upper Arm] Pulse Oximetry 93 94 92 Oxygen Delivery Me thod Oxygen Flow Rate 05/04/24 09:30 05/04/24 09:30 05/04/24 09:39 Temperature Pulse Rate 77 79 Pulse Rate [Pulse Oximeter] Respiratory Rate Blood Pressure 127/69 Blood Pressure [Ri ght Upper Arm] Pulse Oximetry 92 92 90 Oxygen Delivery Me thod Oxygen Flow Rate 05/04/24 09:40 05/04/24 09:45 05/04/24 09:55 Temperature Pulse Rate 77 78 Pulse Rate [Pulse Oximeter] Respiratory Rate 10 L Blood Pressure Blood Pressure [Ri ght Upper Arm] Pulse Oximetry 93 90 88 Oxygen Delivery Me thod Room Air Oxygen Flow Rate 05/04/24 10:00 05/04/24 10:03 05/04/24 10:15 Temperature Pulse Rate 77 70 Pulse Rate [Pulse Oximeter] Respiratory Rate Blood Pressure Blood Pressure [Ri ght Upper Arm] Pulse Oximetry 95 94 91 Oxygen Delivery Me thod Nasal Cannula Oxygen Flow Rate 2 2 05/04/24 10:30 05/04/24 10:45 05/04/24 11:00 Temperature Pulse Rate 71 71 67 Pulse Rate [Pulse Oximeter] Respiratory Rate Blood Pressure Blood Pressure [Ri ght Upper Arm] Pulse Oximetry 90 91 90 Oxygen Delivery Me thod Oxygen Flow Rate 05/04/24 11:05 05/04/24 11:15 05/04/24 11:32 Temperature Pulse Rate 68 66 73 Pulse Rate [Pulse Oximeter] Respiratory Rate Blood Pressure Blood Pressure [Ri ght Upper Arm] Pulse Oximetry 90 91 93 Oxygen Delivery Me thod Oxygen Flow Rate 05/04/24 11:33 05/04/24 11:45 05/04/24 12:00 Temperature Pulse Rate 73 66 70 Pulse Rate [Pulse Oximeter] Respiratory Rate Blood Pressure 135/57 L Blood Pressure [Ri ght Upper Arm] Pulse Oximetry 95 94 93 Oxygen Delivery Me thod Oxygen Flow Rate 05/04/24 12:02 05/04/24 12:03 05/04/24 12:15 Temperature Pulse Rate 71 70 75 Pulse Rate [Pulse Oximeter] Respiratory Rate Blood Pressure 138/70 Blood Pressure [Ri ght Upper Arm] Pulse Oximetry 94 94 94 Oxygen Delivery Me thod Oxygen Flow Rate 05/04/24 12:30 05/04/24 12:32 05/04/24 12:45 Temperature Pulse Rate 72 72 69 Pulse Rate [Pulse Oximeter] Respiratory Rate Blood Pressure 135/65 Blood Pressure [Ri ght Upper Arm] Pulse Oximetry 91 93 91 Oxygen Delivery Me thod Oxygen Flow Rate 05/04/24 13:00 05/04/24 13:02 05/04/24 13:03 Temperature Pulse Rate 68 69 69 Pulse Rate [Pulse Oximeter] Respiratory Rate 18 Blood Pressure 122/62 Blood Pressure [Ri ght Upper Arm] Pulse Oximetry 92 92 95 Oxygen Delivery Me thod Oxygen Flow Rate 05/04/24 13:15 05/04/24 13:16 05/04/24 13:30 Temperature Pulse Rate 71 69 66 Pulse Rate [Pulse Oximeter] Respiratory Rate 16 Blood Pressure 145/67 H Blood Pressure [Ri ght Upper Arm] Pulse Oximetry 96 97 94 Oxygen Delivery Me thod Oxygen Flow Rate 05/04/24 13:32 05/04/24 13:45 05/04/24 14:01 Temperature Pulse Rate 68 68 77 Pulse Rate [Pulse Oximeter] Respiratory Rate Blood Pressure 137/66 Blood Pressure [Ri ght Upper Arm] Pulse Oximetry 94 92 95 Oxygen Delivery Me thod Oxygen Flow Rate 05/04/24 14:03 05/04/24 14:15 05/04/24 14:30 Temperature Pulse Rate 77 71 72 Pulse Rate [Pulse Oximeter] Respiratory Rate Blood Pressure 161/69 H Blood Pressure [Ri ght Upper Arm] Pulse Oximetry 97 94 93 Oxygen Delivery Me thod Oxygen Flow Rate 05/04/24 14:32 05/04/24 14:45 Temperature Pulse Rate 72 71 Pulse Rate [Pulse Oximeter] Respiratory Rate Blood Pressure 142/58 H Blood Pressure [Ri ght Upper Arm] Pulse Oximetry 93 93 Oxygen Delivery Me thod Oxygen Flow Rate Course Course ED Course: Recheck-nurses noted the patient to be hypoxic in the high 80s so put her on nasal cannula and sats came up to the 90s. Patient was still short of breath, but not symptomatic worse well hypoxic. No change with oxygen Reevaluation(s) Reevaluation #1: Recheck-patient back from the bathroom. She did make urine but ?missed the hat? so not able to get urine sample. Sats are now normal in the low 90s on room air. Vital Signs Vital signs: Initial Vital Signs Temperature 98.7 F 05/04/24 08:30 Temperature Source Temporal Artery Scan 05/04/24 08:30 Pulse Rate 77 05/04/24 08:30 Respiratory Rate 18 05/04/24 08:30 Blood Pressure 138/72 05/04/24 08:30 Blood Pressure Mean 94 05/04/24 08:30 Pulse Oximetry 93 05/04/24 08:30 Oxygen Delivery Method Room Air 05/04/24 08:30 Vital Signs Temperature 98.7 F 05/04/24 08:30 Pulse Rate 77 05/04/24 08:30 Respiratory Rate 18 05/04/24 08:30 Blood Pressure 138/72 05/04/24 08:30 Pulse Oximetry 93 05/04/24 08:30 Oxygen Delivery Method Room Air 05/04/24 08:30 Temperature 98.7 F 05/04/24 08:30 Pulse Rate 71 05/04/24 14:45 Respiratory Rate 16 05/04/24 13:15 Blood Pressure 142/58 H 05/04/24 14:32 Pulse Oximetry 93 05/04/24 14:45 Oxygen Delivery Method Nasal Cannula 05/04/24 10:03 Oxygen Flow Rate 2 05/04/24 10:03 Medications Administered Medications: Discontinued Medications Generic Name Dose Route Start Last Admin Trade Name Pedro PRN Reason Stop Dose Admin Apixaban 10 mg 05/04/24 09:12 05/04/24 09:38 Apixaban 5 Mg Tablet PO 05/04/24 09:13 10 mg ONCE ONE Administration Sodium Chloride 1,000 mls @ 1,000 mls/hr 05/04/24 09:15 05/04/24 10:45 0.9 % Sodium Chloride 1000 Ml IV 05/04/24 10:14 Infused .Q1H KILEY Infusion Ketorolac Tromethamine 15 mg 05/04/24 09:05 05/04/24 09:40 Ketorolac 15 Mg/Ml Inj IVP 05/04/24 09:06 15 mg ONCE ONE Administration Lactated Ringer's 1,000 ml 05/04/24 11:40 05/04/24 11:51 Lactated Ringers 1000 Ml IV 05/04/24 11:41 1,000 ml ONCE ONE Administration Ondansetron HCl 4 mg 05/04/24 09:05 05/04/24 09:40 Ondansetron 2 Mg/Ml Inj IVP 05/04/24 09:06 4 mg ONCE ONE Administration Medical Decision Making MDM Narrative Medical decision making narrative: 73-year-old female returning to the ER today for evaluation of right flank pain and right-sided body pain, chills, weakness, nausea, dehydration. She had been seen in the ER yesterday for shortness of breath and leg swelling. She was diagnosed with a right popliteal DVT and a bilateral lung PE with a pulmonary infarct. She was discharged home after being given a dose of Lovenox yesterday in the ER (apparently did not want to stay under obstetrics). With known PE she still has short of this of breath. Breathing are not worse today than yesterday. However she was noted to be temporarily hypoxic while she was resting here in the ER. EKG shows no signs of right heart strain and INR is undetectable but BNP level has gone up compared to yesterday. With her fever and chills and cough we did consider infectious etiology. She had either a right lower lobe infiltrate or pulmonary infarct on her CT scan yesterday. COVID/influenza/RSV PCR negative today. [place] [address]. This is up from 14,000 thousand yesterday. Unclear etiology but suspected may be related to evolving pulmonary infarct or inflammation from that. Consider possible pneumonia but she is really not coughing at all. COVID test is negative. She does have recent urologic urinary tract instrumentation for biopsies apparently related to hematuria. This was done at the [facility] about 2 months ago in March. Urinalysis yesterday showed 15-25 WBC, moderate bacteria, but negative nitrite and moderate squamous epithelial cells. Possibly contaminated. However with recent urinary tract instrumentation need to rule out UTI as a cause for leukocytosis. Repeat urine sample today is normal. No pyuria or bacteriuria. While here in the ER she did have a brief episode of confirmed hypoxia and was temporarily on nasal cannula. However sets seem to come up on their own. To monitor for a few hours here in the ER on room air and she remained stable in the mid 90s. She was also noting significant weakness, nausea. These are improved after Zofran and fluids administered here in the ER. Given the patient's complexity, overall weakness, and return visit 1 day after discharge, we give strong consider is a goins to hospitalization. Discussed with our hospitalist, they indicate that there is really nothing medical that we can not admit the patient for. They would accept the patient but would have to be under observation status. Discussed this with the patient. She actually says she is feeling much better after the nausea meds and fluids administered here in the ER. She wants to discharge home. Her has been able fill the prescription for Eliquis and she will continue that this evening. Discussed that she will his to 10 mg twice daily for 7 days and then switch to 5 mg twice daily. She will follow-up with her primary care provider next week for re- evaluation. Primary care will help her determine duration of anticoagulation. We discussed precautions for return to the ER. Patient is in agreement and eager for discharge. Lab Data Labs: Lab Results 05/04/24 05/04/24 05/04/24 Range/Units 09:30 10:30 13:10 WBC 16.52 H (4.50-11.00) K/uL RBC 4.45 (4.00-5.20) m/uL Hgb 12.3 (12.0-16.0) gm/dL Hct 38.4 (33.0-51.0) % MCV 86 (80-100) fL MCH 28 (26-34) pg MCHC 32 (32-36) gm/dL RDW Coeff of Ursula 13.4 (11.5-15.5) % Plt Count 221 (140-440) K/uL Neut % (Auto) 86.3 H (42.0-72.0) % Lymph % (Auto) 6.1 L (20-44) % [place] % (Auto) 7.2 (0.0-11.0) % Eos % (Auto) 0.0 (0.0-7.0) % Baso % (Auto) 0.2 (0.0-3.0) % Neut # (Auto) 14.30 H (1.7-7.0) K/uL Lymph # (Auto) 1.00 (0.90-2.90) K/uL [place] # (Auto) 1.20 H (0.00-0.90) K/UL Eos # (Auto) 0.00 (0.00-0.50) K/uL Baso # (Auto) 0.00 (0.00-0.30) K/uL Abs Immat Gran (auto) 0.00 (0.00-0.30) K/uL Imm/Tot Granulo (auto) 0.2 % Sodium 132 L (135-149) mmol/L Potassium 3.8 (3.6-5.1) mmol/L Chloride 101 (96-114) mmol/L Carbon Dioxide 23 (20-32) mmol/L Anion Gap 8 (7-15) mEq/L BUN 9 (7-30) mg/dL Creatinine 0.7 (0.5-1.5) mg/dL Estimated Creat Clear 40.22 Estimated GFR 92 ml/min Glucose 139 H (60-115) mg/dL Lactate 1.3 (0.5-1.9) mmol/L Calcium 8.8 (8.4-10.6) mg/dL Total Bilirubin 1.1 (0.1-1.5) mg/dL AST 25 (12-35) U/L ALT 18 (4-35) U/L Alkaline Phosphatase 81 (40-150) U/L Troponin I < 0.01 L (0.01-0.04) ng/mL NT-Pro-B Natriuret Pep 674 pg/mL Total Protein 7.0 (6.0-8.3) g/dL Albumin 4.2 (3.3-5.0) g/dL Urine Color Yellow (Yellow) Urine Appearance Clear (Clear) Urine pH 6.0 (5.0-8.5) Ur Specific [place] 1.010 (1.000-1.030) Urine Protein Negative (Negative) Urine Glucose (UA) Negative (Negative) Urine Ketones Trace A (Negative) Urine Blood 2+ A (Negative) Urine Nitrite Negative (Negative) Urine Bilirubin Negative (Negative) Urine Urobilinogen 0.2 (0.2-1.0) Ur Leukocyte Esterase Negative (Negative) Urine RBC 0-2 (0-2) Urine WBC 0-2 (0-5) Ur Squamous Epith Cells Moderate A (None-Few) Urine Bacteria Few A (None) SARS-CoV-2 (PCR) Negative SARS-CoV-2 (Negative) Influenza Type A (PCR) Negative PCR FLU A (Negative) Influenza Type B (PCR) Negative PCR FLU B (Negative) RSV (PCR) Negative PCR RSV (Negative) ECG Data Attestation: I personally reviewed and interpreted this ECG as follows: Interpretation: Normal sinus rhythm Rate: 79 FL: 146 QRS axis: normal axis. Poor R-wave progression in anterior leads ST segment/T wave: no ST segment elevation or depression. QTc: 428 Discharge Plan Discharge Clinical Impression: Pulmonary embolism, Infarctions, pulmonary, Nausea Patient Disposition: Home, Self-Care Condition: Stable Instructions: Pulmonary Embolism (ED) Additional Instructions: As we discussed, please come back to the ER immediately if you have worsening symptoms, especially trouble breathing, chest pain, dizziness or fainting, or if you have uncontrolled nausea, dehydration, weakness, or any problems. Please follow-up with your regular doctor next week for recheck. Continue on the Eliquis 10 mg twice daily for 7 days and then 5 mg twice daily after that. Talk with your regular doctor about how long you need to stay on the blood thinner. Use the nausea medicine if needed. Drink plenty of fluids and stay hydrated. At healthy foods when you feel up to it. If you have any concerns, come back to ER right away. Prescriptions: New ondansetron HCl 4 mg tablet 4 mg PO TID Qty: 10 0RF No Action estradiol 0.01 % (0.1 mg/gram) cream vaginal famotidine 40 mg tablet 40 mg PO DAILY chlorhexidine gluconate 0.12 % mouthwash PO cholecalciferol (vitamin D3) 50 mcg (2,000 unit) capsule 2,000 unit PO QDAY rosuvastatin 10 mg tablet 10 mg PO DAILY losartan 50 mg tablet 50 mg PO DAILY psyllium Powder 1 tbsp PO ONCE Rx Instructions: mix into at least 8 oz of water or juice before administering multivitamin Tablet 1 tab PO QAM gabapentin [Neurontin] 300 mg capsule 300 mg PO TID hydrocodone-acetaminophen 5-325 mg tablet 1 tab PO Q6H PRN (Reason: pain) Qty: 14 0RF losartan 100 mg tablet 100 mg PO DAILY Eliquis DVT-PE Treat 30D Start 5 mg (74 tabs) tablets,dose pack See Rx Instructions .ROUTE .COMPLEX Qty: 74 0RF Rx Instructions: orally per package directions Follow Up/Referrals: Pat Keys DO [Primary Care Provider] - Stand Alone Forms: [facility] Info Instructions
[2024-05-04] MEDS: APIXABAN 5 MG TABLET 10 MG PO (09:38)
[2024-05-04] MEDS: ONDANSETRON 2 MG/ML inj 4 MG IVP (09:40)
[2024-05-04] MEDS: KETOROLAC 15 MG/ML inj IVP (09:40)
[2024-05-04] MEDS: 0.9 % SODIUM CHLORIDE 1000 ml 1,000 ML IV (09:41)
[2024-05-04 09:45] LABS: Lactate* 1.3 mmol/L (0.5-1.9)
[2024-05-04 09:48] LABS: Basophils Percent Auto 0.2 % (0.0-3.0); Hematocrit 38.4 % (33.0-51.0); Hemoglobin* 12.3 gm/dL (12.0-16.0); Immature Granulocytes Pct Auto 0.2 %; Lymphocytes Percent Auto 6.1 % (20-44); Mean Corpuscular HGB Conc 32 gm/dL (32-36); Mean Corpuscular Hemoglobin 28 pg (26-34); Mean Corpuscular Volume 86 fL (80-100); Monocytes Percent Auto 7.2 % (0.0-11.0); Neutrophils Percent Auto 86.3 % (42.0-72.0); Platelet Count* 221 K/uL (140-440); RDW Coefficient of Variation % 13.4 % (11.5-15.5); Red Blood Count 4.45 m/uL (4.00-5.20); White Blood Count* 16.52 K/uL (4.50-11.00)
[2024-05-04 09:49] LABS: Slide Review Reflex No
[2024-05-04 10:05] LABS: Albumin* 4.2 g/dL (3.3-5.0); Chloride* 101 mmol/L (96-114); Potassium* 3.8 mmol/L (3.6-5.1); Sodium* 132 mmol/L (135-149)
[2024-05-04 10:07] LABS: Bilirubin Total* 1.1 mg/dL (0.1-1.5); Creatinine* 0.7 mg/dL (0.5-1.5); Est. Creatinine Clearance* 40.22; Estimated Glomerular Filt Rate 92 ml/min
[2024-05-04 10:08] LABS: Alanine Aminotransferase* 18 U/L (4-35); Alkaline Phosphatase* 81 U/L (40-150); Anion Gap 8 mEq/L (7-15); Aspartate Amino Transferase* 25 U/L (12-35); Blood Urea Nitrogen* 9 mg/dL (7-30); Calcium* 8.8 mg/dL (8.4-10.6); Carbon Dioxide* 23 mmol/L (20-32); Glucose* 139 mg/dL (60-115)
[2024-05-04 10:21] LABS: NT Pro B Type NatriureticPept* 674 pg/mL; Troponin I* < 0.01 ng/mL (0.01-0.04)
[2024-05-04 11:24] LABS: PCR FLU A Negative PCR FLU A (Negative); PCR FLU B Negative PCR FLU B (Negative); PCR RSV Negative PCR RSV (Negative); SARS PCR* Negative SARS-CoV-2 (Negative)
[2024-05-04] MEDS: LACTATED RINGERS 1000 ML IV (11:51)
--- NOTE | 2024-05-04 12:05 | ED.NURSE ---
Patient had 5 minutes where O2 sats were 88-89%. 2L NC was applied with sats then 94%. Patient up to bathroom at sats at that time 92% on room air. Patient remains on room air at this time with sats 94%.
[2024-05-04 13:18] LABS: Appearance Urine Clear (Clear); Bilirubin Urine Negative (Negative); Blood Urine 2+ (Negative); Color Urine Yellow (Yellow); Glucose Urine Negative (Negative); Ketones Urine Trace (Negative); Leukocyte Esterase Urine Negative (Negative); Nitrite Urine Negative (Negative); Protein Urine Negative (Negative); Urobilinogen Urine 0.2 (0.2-1.0)
[2024-05-04 13:43] LABS: RBC Urine 0-2 (0-2); Squamous Epithelial Cell Urine Moderate (None-Few); WBC Urine 0-2 (0-5)
[2024-05-04 13:44] LABS: Bacteria Urine Few
== END 2024-05-04 15:06 | disposition home or self-care (01) ==
PROVIDERS: Emergency Provider Emergency Medicine; PCP Family Medicine
DX: J90 Pleural effusion, not elsewhere classified (principal); I26.99 Other pulmonary embolism without acute cor pulmonale
CPT/HCPCS: 36415; 80053; 81001; 83605; 83880; 84484; 85025; 87040; 87631; 93005; 94761; 96374; 96375; 99283; 99284; A9270; J1885; J2405; J7030; J7120

== ENCOUNTER 2024-05-05 07:32 | Observation (INO) | payer MEDICARE, BC, SELFPAY ==
[2024-05-05] VITALS (12 sets, daily range): BP systolic 126–154; BP diastolic 56–91; PULSE 63–85; RESP 16–20; TEMP 36.8–38.3; O2SAT 93–96; BMI 30.2; BMI 30.5
--- NOTE | 2024-05-05 07:57 | ED.FEVER ---
HPI - Fever General Time Seen by Provider: 07:57 Date Seen: 05/05/24 Chief Complaint: Fever Stated Complaint: Fever, pulmonary embolism, covid neg Time Seen by Provider: 05/05/24 07:54 Source: patient, RN notes reviewed and old records reviewed Mode of arrival: ambulatory Limitations: no limitations History of Present Illness HPI Narrative: This 73-year-old female is coming in this morning with fever. This is in the setting of known moderate burden bilateral acute pulmonary emboli, greatest burden within the right lower lobe. Large ground-glass opacity within the right lower lobe base likely represents developing pulmonary infarct. This was diagnosed on April 03. Patient did not start her Eliquis right away, took 1st dose yesterday here in the ER. She did take a dose at home last night and 1 this morning. She did get initial dose of Lovenox on diagnosis on May 03. She was back in yesterday feeling nauseated, short of breath. She has been using some Zofran that was prescribed to her, is helping. She still has the right-sided pain, does wrap around into the flank area. She does feel short of breath, worsens with any exertion. When you ask her she has chest pain, she denies this but does states she actually has lung pain. She notes that she was up about every 2 hours urinating after receiving normal saline in the ER yesterday. Her sodium was down to 132 yesterday in the ER. She was also diagnosed with occlusive deep vein thrombus within the right popliteal vein that was acute on May 03. She is questioned on pain, would appreciate some Tylenol for both fever control and pain control. MD elicited complaint: fever Related Data Home Medications ?Medication ?Instructions ?Recorded ?Confirmed cholecalciferol (vitamin D3) 50 2,000 unit PO QDAY 11/10/22 05/03/24 mcg (2,000 unit) capsule gabapentin 300 mg capsule 300 mg PO TID 11/10/22 05/03/24 (Neurontin) losartan 50 mg tablet 50 mg PO DAILY 11/10/22 10/07/23 multivitamin 1 tab PO QAM 11/10/22 05/03/24 psyllium 1 tbsp PO ONCE 11/10/22 05/03/24 rosuvastatin 10 mg tablet 10 mg PO DAILY 11/10/22 05/03/24 chlorhexidine gluconate 0.12 % PO 01/26/23 01/30/23 mouthwash estradiol 0.01% (0.1 mg/gram) vaginal 01/26/23 01/30/23 vaginal cream famotidine 40 mg tablet 40 mg PO DAILY 01/26/23 05/03/24 losartan 100 mg tablet 100 mg PO DAILY 05/03/24 05/03/24 Previous Rx's ?Medication ?Instructions ?Recorded hydrocodone 5 mg-acetaminophen 325 1 tab PO Q6H PRN pain #14 tabs 10/07/23 mg tablet apixaban 5 mg (74 tabs) tablets in See Rx Instructions PO .COMPLEX 05/03/24 a dose pack ([employer] DVT-PE Treat #74 ea 30D Start) ondansetron HCl 4 mg tablet 4 mg PO TID #10 tabs 05/04/24 Allergies Allergy/AdvReac Type Severity Reaction Status Date / Time erythromycin base Allergy Severe Hives Verified 05/03/24 19:20 meloxicam Allergy Verified 05/03/24 19:20 codeine AdvReac Intermediate Gastrointestinal Verified 05/03/24 19:20 Upset lisinopril AdvReac Intermediate Cough Verified 05/03/24 19:20 Review of Systems Status of ROS Reports: 6 or more systems reviewed and unremarkable except as noted in History and below [facility] Medical History (Updated 05/05/24 @ 09:28 by Gabby Yost MD) DVT (deep venous thrombosis) ?I82.409 - Acute embolism and thrombosis of unspecified deep veins of unspecified lower extremity (ICD-10) Pulmonary emboli ?I26.99 - Other pulmonary embolism without acute cor pulmonale (ICD-10) Excessive cerumen in both ear canals ?H61.23 - Impacted cerumen, bilateral (ICD-10) AOM (acute otitis media) ?H66.90 - Otitis media, unspecified, unspecified ear (ICD-10) Hyperlipidemia ?E78.5 - Hyperlipidemia, unspecified (ICD-10) Hypertension ?I10 - Essential (primary) hypertension (ICD-10) Radiculitis with lower extremity symptoms (07/25/21) ?M54.10 - Radiculopathy, site unspecified (ICD-10) Cervical intraepithelial neoplasia grade 1 ?N87.0 - Mild cervical dysplasia (ICD-10) Surgical History History of arthroscopy of right knee (03/22/12) ?Z98.890 - Other specified postprocedural states (ICD-10) History of colposcopy ?Z98.890 - Other specified postprocedural states (ICD-10) History of partial hysterectomy (07/2021) ?Z90.711 - Acquired absence of uterus with remaining cervical stump (ICD-10) History of arthroscopy of right shoulder (07/19/18) ?Z98.890 - Other specified postprocedural states (ICD-10) Family History Sister Uterine cancer Father High blood pressure Diabetes Prostate cancer COPD (chronic obstructive pulmonary disease) Macular degeneration Mother Lung cancer Social History Smoking Status: Current some day smoker Do you use any of these nicotine containing products: Other How often do you have a drink containing alcohol: never How often do you have six or more drinks on one occasion: Never AUDIT-C Alcohol total score: 0 Non-prescribed substance use: marijuana (any form) Exam Const Vital Signs, click to edit/add: Vital Signs - 24 hr 05/05/24 07:46 Temperature 100.9 F H Pulse Rate [Right Pulse Oximeter] 84 Respiratory Rate 18 Blood Pressure [Right Upper Arm] 154/65 H Pulse Oximetry 94 Oxygen Delivery Method Room Air This 73-year-old female is alert, interactive, no apparent distress. Do note her presenting temperature of 100.9? F. speech is normal, able to speak in complete sentences. Sclera clear, face atraumatic. Neck supple, no adenopathy, no noted jugular venous distension. Lungs are clear but she has bilateral diminished lower lung zone breath sounds. She has no tachypnea, no wheezing, no crackles. She is able to sit up easily. CV regular rate and rhythm, no murmur, normal S1-S2, no S3-S4. Abdomen is soft common rebound or guarding, no organomegaly. She has no appreciable lower extremity edema, calves are nontender. Patient was ambulatory into the ED of her own accord. Documenting provider has reviewed patient's vital signs: yes Course Course ED Course: Have reviewed with patient that her pain and fever are presumably coming from the right pulmonary infarct that was already developing on her initial CT on May 03. Will redo a chest CT with IV contrast, she does not need a new PE study. We will look to see there is any complications beyond pulmonary infarct. Will get her Tylenol for both fever and pain control. She currently is not hypoxic on presentation but will have her on cardiac monitoring and pulse oximetry to follow her here. She is on her anticoagulant now and has been taking it in the last 24 hours. We will recheck full complement of labs. Will look at an EKG and troponin just ensure that she is not developing any cardiac strain. Reevaluation(s) Time of Reevaluation #1: 09:32 Reevaluation #1: Reviewed patient's CT findings with her. She understands that there is probably pneumonia developing within the pulmonary infarct. Antibiotics will be initiated. She does need an echo for strain pattern seen on CT today which was not present on prior CT. She is in agreement to going to the hospital. O2 sats were down to 90% with a good waveform well I was in the room with her, have not seen any definitive hypoxia at this point. Consultations Consultation #1: Spoke with hospitalist Eneida Brandt, she agrees and accepts patient. We have discussed antibiotic coverage, she would prefer Zosyn and this is ordered. Patient has not had blood cultures, she has no evidence of any sepsis on her vital signs, do not feel that she requires them. CT is showing changes of probable developing pneumonia within the infarct and the reason for the coverage with antibiotics. There is also evidence of right heart strain, echo has been ordered, hopefully it will happen later today. Her troponin and EKG remains stable, although troponin was undetectable yesterday, is in the normal range of 0.02 today. Will update patient on the plan and just re-evaluate if she will go into the hospital this time. On presentation, it was sound in his if she was thinking she required hospitalization. Time: 09:25 Vital Signs Vital signs: Initial Vital Signs Temperature 100.9 F H 05/05/24 07:46 Temperature Source Oral 05/05/24 07:46 Pulse Rate 84 05/05/24 07:46 Respiratory Rate 18 05/05/24 07:46 Blood Pressure 154/65 H 05/05/24 07:46 Blood Pressure Mean 94 05/05/24 07:46 Blood Pressure Position Sitting 05/05/24 07:46 Pulse Oximetry 94 05/05/24 07:46 Oxygen Delivery Method Room Air 05/05/24 07:46 Vital Signs Temperature 100.9 F H 05/05/24 07:46 Pulse Rate 84 05/05/24 07:46 Respiratory Rate 18 05/05/24 07:46 Blood Pressure 154/65 H 05/05/24 07:46 Pulse Oximetry 94 05/05/24 07:46 Oxygen Delivery Method Room Air 05/05/24 07:46 Temperature 100.9 F H 05/05/24 07:46 Pulse Rate 84 05/05/24 07:46 Respiratory Rate 18 05/05/24 07:46 Blood Pressure 154/65 H 05/05/24 07:46 Pulse Oximetry 94 05/05/24 07:46 Oxygen Delivery Method Room Air 05/05/24 07:46 Medications Administered Medications: Discontinued Medications Generic Name Dose Route Start Last Admin Trade Name Pedro PRN Reason Stop Dose Admin Acetaminophen 1,000 mg 05/05/24 08:17 05/05/24 08:35 Acetaminophen 500 Mg Tablet PO 05/05/24 08:18 1,000 mg ONCE ONE Administration MDM - Fever Medical Records Attestation: I reviewed the patient's medical records. Lab Data Attestation: I reviewed the patient's lab results. Labs: Lab Results 05/05/24 Range/Units 08:27 WBC 15.09 H (4.50-11.00) K/uL RBC 4.05 (4.00-5.20) m/uL Hgb 11.2 L (12.0-16.0) gm/dL Hct 35.3 (33.0-51.0) % MCV 87 (80-100) fL MCH 28 (26-34) pg MCHC 32 (32-36) gm/dL RDW Coeff of Ursula 13.2 (11.5-15.5) % Plt Count 216 (140-440) K/uL Neut % (Auto) 85.0 H (42.0-72.0) % Lymph % (Auto) 6.6 L (20-44) % Stanton % (Auto) 7.9 (0.0-11.0) % Eos % (Auto) 0.1 (0.0-7.0) % Baso % (Auto) 0.1 (0.0-3.0) % Neut # (Auto) 12.80 H (1.7-7.0) K/uL Lymph # (Auto) 1.00 (0.90-2.90) K/uL Stanton # (Auto) 1.20 H (0.00-0.90) K/UL Eos # (Auto) 0.00 (0.00-0.50) K/uL Baso # (Auto) 0.00 (0.00-0.30) K/uL Abs Immat Gran (auto) 0.00 (0.00-0.30) K/uL Imm/Tot Granulo (auto) 0.3 % Sodium 130 L (135-149) mmol/L Potassium 3.7 (3.6-5.1) mmol/L Chloride 100 (96-114) mmol/L Carbon Dioxide 22 (20-32) mmol/L Anion Gap 8 (7-15) mEq/L BUN 8 (7-30) mg/dL Creatinine 0.7 (0.5-1.5) mg/dL Estimated Creat Clear 40.22 Estimated GFR 92 ml/min Glucose 121 H (60-115) mg/dL Lactate 0.9 (0.5-1.9) mmol/L Calcium 8.3 L (8.4-10.6) mg/dL Total Bilirubin 1.0 (0.1-1.5) mg/dL AST 27 (12-35) U/L ALT 18 (4-35) U/L Alkaline Phosphatase 91 (40-150) U/L Troponin I 0.02 (0.01-0.04) ng/mL NT-Pro-B Natriuret Pep 910 pg/mL Total Protein 6.4 (6.0-8.3) g/dL Albumin 3.6 (3.3-5.0) g/dL SARS-CoV-2 (PCR) Negative SARS-CoV-2 (Negative) Influenza Type A (PCR) Negative PCR FLU A (Negative) Influenza Type B (PCR) Negative PCR FLU B (Negative) RSV (PCR) Negative PCR RSV (Negative) Imaging Data CT scan - chest: Attestation: I have reviewed the pertinent imaging results. Radiologist's impression: Patient: SUELLEN LUKE Facility:?[facility] Patient ID:?[id number] Site Patient ID:?[id number]. Site :?[id number] Study:?CT-Chest w/ 75cc [id number]/4/2024 8:53:57 AM Ordering Physician:?Priyank Pierre Final Report: INDICATION: Known PE with worsening right-sided chest pain and fever. COMPARISON: May 03, 2024 TECHNIQUE: : CT examination of the chest was performed with the uneventful intravenous administration of 75 cc of Isovue 370 while thin axial sections were obtained from above the apices of the lungs to the lung bases. The examination was timed as a pulmonary artery angiogram. Please note that all CT scans at this facility use dose modulation, iterative reconstruction, and/or weight-based dosing when appropriate to reduce radiation dose to as low as reasonably achievable. FINDINGS: : HEART and MEDIASTINUM: The heart size is normal. There is no mediastinal or hilar adenopathy or mass. There is no pericardial effusion.The RV to LV ratio is 0.9 indicating right heart strain. There is no bowing of the septum to the right. Atherosclerotic vascular calcifications noted. No pericardial effusion. Moderate to large hiatal hernia again noted PULMONARY ARTERIAL CIRCULATION: Moderate clot burden pulmonary embolus primarily involving the lower lobes, right greater than left. This is without substantial change since the prior study. No new or worsening emboli. LUNGS and PLEURAL SPACES: Minimal left base opacity probably atelectasis. No significant left effusion. Ground-glass in the right lower lobe andconsolidation at the medial right base and the lateral segment of the right middle lobe. The findings probably represent evolving pulmonary infarcts. The ground-glass was present previously though the consolidative process is new. There is a small right effusion which is new. It is also possible that the consolidative process at the medial right base represents pneumonia. VISUALIZED UPPER ABDOMEN: Hyperdense 1 centimeter left renal lesion could represent a hyperdense cyst. This should be followed in the nonacute care setting with a multiphase study to exclude a malignancy. Right renal cyst. Hepatic steatosis. OSSEOUS STRUCTURES: Unchanged nonacute appearing L1 compression deformity. Otherwise, the age-appropriate appearance. No acute fracture or destructive process. TUBES and LINES: None. IMPRESSION: 1. There are findings of mild right heart strain as evidenced by a mildly elevated RV to LV ratio of 0.9. 2. Moderate clot burden pulmonary embolus similar in appearance to the prior study. No new or worsening embolic disease. 3. Persistent ground-glass at the right base. However, there is now consolidation and/or volume loss of the lateral segment of the right middle lobe and the medial right lower lobe. These findings are likely related to developing pulmonary infarct with associated volume loss. It is also possible that there is pneumonia involve, especially the medial right base. There is a small right effusion which is new. There is no parenchymal cavitation 4. There is a hyperdense 1 centimeter left upper pole renal lesion for which follow-up evaluation is recommended in the nonacute setting. Please note that all CT scans at this facility use dose modulation, iterative reconstruction, and/or weight-based dosing when appropriate to reduce radiation dose to as low as reasonably achievable. Dictated by Gera óLpez MD @ 05/05/2024 9:12:38 AM (Electronic Signature) ECG Data Attestation: I personally reviewed and interpreted this ECG as follows: (Sinus rhythm, 80 beats per minute. No definitive ischemic change, QT corrected 412 milliseconds. No significant change compared to EKG from May 04.) ECG interpretation date: 05/05/24 ECG interpretation time: 08:47 Prior ECG tracings: available for review Discharge Plan Discharge Clinical Impression: Embolism, pulmonary with infarction Pneumonia Qualifiers: Pneumonia type: due to unspecified organism Patient Disposition: Admitted As Observation
--- NOTE | 2024-05-05 08:07 | CRLHL7_ITS ---
For Patients: As a result of the Century Cures Act, medical imaging exams and procedure reports are released immediately into your electronic medical record. You may view this report before your referring provider. If you have questions, please contact your health care provider. INDICATION: Known PE with worsening right-sided chest pain and fever. COMPARISON: May 03, 2024 TECHNIQUE: : CT examination of the chest was performed with the uneventful intravenous administration of 75 cc of Isovue 370 while thin axial sections were obtained from above the apices of the lungs to the lung bases. The examination was timed as a pulmonary artery angiogram. Please note that all CT scans at this facility use dose modulation, iterative reconstruction, and/or weight-based dosing when appropriate to reduce radiation dose to as low as reasonably achievable. FINDINGS: : HEART and MEDIASTINUM: The heart size is normal. There is no mediastinal or hilar adenopathy or mass. There is no pericardial effusion.The RV to LV ratio is 0.9 indicating right heart strain. There is no bowing of the septum to the right. Atherosclerotic vascular calcifications noted. No pericardial effusion. Moderate to large hiatal hernia again noted PULMONARY ARTERIAL CIRCULATION: Moderate clot burden pulmonary embolus primarily involving the lower lobes, right greater than left. This is without substantial change since the prior study. No new or worsening emboli. LUNGS and PLEURAL SPACES: Minimal left base opacity probably atelectasis. No significant left effusion. Ground-glass in the right lower lobe andconsolidation at the medial right base and the lateral segment of the right middle lobe. The findings probably represent evolving pulmonary infarcts. The ground-glass was present previously though the consolidative process is new. There is a small right effusion which is new. It is also possible that the consolidative process at the medial right base represents pneumonia. VISUALIZED UPPER ABDOMEN: Hyperdense 1 centimeter left renal lesion could represent a hyperdense cyst. This should be followed in the nonacute care setting with a multiphase study to exclude a malignancy. Right renal cyst. Hepatic steatosis. OSSEOUS STRUCTURES: Unchanged nonacute appearing L1 compression deformity. Otherwise, the age-appropriate appearance. No acute fracture or destructive process. TUBES and LINES: None. IMPRESSION: 1. There are findings of mild right heart strain as evidenced by a mildly elevated RV to LV ratio of 0.9. 2. Moderate clot burden pulmonary embolus similar in appearance to the prior study. No new or worsening embolic disease. 3. Persistent ground-glass at the right base. However, there is now consolidation and/or volume loss of the lateral segment of the right middle lobe and the medial right lower lobe. These findings are likely related to developing pulmonary infarct with associated volume loss. It is also possible that there is pneumonia involve, especially the medial right base. There is a small right effusion which is new. There is no parenchymal cavitation 4. There is a hyperdense 1 centimeter left upper pole renal lesion for which follow-up evaluation is recommended in the nonacute setting. Please note that all CT scans at this facility use dose modulation, iterative reconstruction, and/or weight-based dosing when appropriate to reduce radiation dose to as low as reasonably achievable. Dictated by Gera López MD @ 05/05/2024 9:12:38 AM (Electronically Signed)
[2024-05-05 08:34] LABS: Lactate* 0.9 mmol/L (0.5-1.9)
[2024-05-05] MEDS: ACETAMINOPHEN 500 MG TABLET 1000 MG PO ×2 (08:35→14:07)
[2024-05-05 08:36] LABS: Basophils Percent Auto 0.1 % (0.0-3.0); Eosinophils Percent Auto 0.1 % (0.0-7.0); Hematocrit 35.3 % (33.0-51.0); Hemoglobin* 11.2 gm/dL (12.0-16.0); Immature Granulocytes Pct Auto 0.3 %; Lymphocytes Percent Auto 6.6 % (20-44); Mean Corpuscular HGB Conc 32 gm/dL (32-36); Mean Corpuscular Hemoglobin 28 pg (26-34); Mean Corpuscular Volume 87 fL (80-100); Monocytes Percent Auto 7.9 % (0.0-11.0); Platelet Count* 216 K/uL (140-440); RDW Coefficient of Variation % 13.2 % (11.5-15.5); Red Blood Count 4.05 m/uL (4.00-5.20); White Blood Count* 15.09 K/uL (4.50-11.00)
[2024-05-05 08:41] LABS: Slide Review Reflex No
[2024-05-05 08:53] LABS: Chloride* 100 mmol/L (96-114)
[2024-05-05 08:54] LABS: Albumin* 3.6 g/dL (3.3-5.0); Potassium* 3.7 mmol/L (3.6-5.1); Sodium* 130 mmol/L (135-149)
[2024-05-05 08:56] LABS: Anion Gap 8 mEq/L (7-15); Carbon Dioxide* 22 mmol/L (20-32); Creatinine* 0.7 mg/dL (0.5-1.5); Est. Creatinine Clearance* 40.22; Estimated Glomerular Filt Rate 92 ml/min
[2024-05-05 08:57] LABS: Alanine Aminotransferase* 18 U/L (4-35); Alkaline Phosphatase* 91 U/L (40-150); Aspartate Amino Transferase* 27 U/L (12-35); Blood Urea Nitrogen* 8 mg/dL (7-30); Calcium* 8.3 mg/dL (8.4-10.6); Glucose* 121 mg/dL (60-115); Total Protein* 6.4 g/dL (6.0-8.3)
[2024-05-05 09:09] LABS: NT Pro B Type NatriureticPept* 910 pg/mL
[2024-05-05 09:10] LABS: Troponin I* 0.02 ng/mL (0.01-0.04)
[2024-05-05 09:20] LABS: PCR FLU A Negative PCR FLU A (Negative); PCR FLU B Negative PCR FLU B (Negative); PCR RSV Negative PCR RSV (Negative); SARS PCR* Negative SARS-CoV-2 (Negative)
[2024-05-05] MEDS: PIPERACILLIN/TAZOBACTAM 3.375 GM in 0.9 % SODIUM CHLORIDE Mini-bag 100 ML IVPB ×3 (09:39→20:40)
[2024-05-05 10:24] LABS: Procalcitonin* 0.35 ng/mL (<0.50)
--- NOTE | 2024-05-05 10:30 | P.IMHP_ITS ---
<Statement entered by Anabel Song - 05/05/24 12:07> I, Anabel DAMON, personally scribed for Eneida Mathews PA-C on 05/05/24 at 1030 am. Documented by User: Anabel Song 05/05/24 12:10 Hospitalist- H&P: HPI History of Present Illness Date Seen: 05/05/24 Chief complaint: Fever, pulmonary embolism, covid neg Narrative: Tana Dominguez is a 73 year old female presenting to the floor from the ER with a chief complaint of fever and increased back pain. Two nights ago on 05/03/24 the patient was in the ER for shortness of breath and was diagnosed with bilateral pulmonary emboli and a DVT in her right popliteal vein and discharged on Eliquis (first dose in the ER on 05/04/24). One night ago on 05/04/24 the patient was in the ER with an increase in back pain with a history of chronic low back pain and a lumbar compression fracture treated with medical marijuana. She denies recent surgeries and immobilization. She denies a PMH of DVT/PE. She dabbled in smoking cigarettes for a bit in her teenage years. Today she presented to the ER with a fever and increased back pain. She took her temperature this morning and it was 100.5 degrees. Her back pain is below her right ribs and radiates to the middle of her back. It is a constant dull pain and she rates it a 5-6 on a scale of 0- 10. It is worse when she coughs. She took some Tylenol today which seemed to help some. She denies a productive cough. She is more short of breath and it is more painful on expiration with slight wheezing. She is more lightheaded. She has a decrease in appetite and has not been able to eat anything for the past few days since nothing sounds good. She has been keeping up on her fluids. She has been having an increase in chills, fatigue, and headache. ER labs reviewed. Notable findings: Hemoglobin of 11.2. Normal platelet. White count of 15.09 (16.52 on 05/04/24 and 14.11 on 05/03/24). D-dimer elevated on 05/03/24 with a level of 3.24. Chemistries reveal hyponatremia at 130 (132 on 05/04/24). Normal renal function. Normal liver function. Normal lactate. NT Pro BNP at 910 (674 on 05/04/24. 170 on 05/03/24.) Urine did not show signs of infection but signs of contamination. Negative flu and RSV. Negative COVID. Strep pneumonia negative. Admission EKG: sinus rhythm, 80 beats per minute. No definitive ischemic change. Chest CT results on 05/05/24: 1. There are findings of mild right heart strain as evidenced by a mildly elevated RV to LV ratio of 0.9 (new finding since previous ER visits). 2. Moderate clot burden pulmonary embolus similar in appearance to the prior study. No new or worsening embolic disease. 3. Persistent ground-glass at the right base. However, there is now consolidation and/or volume loss of the lateral segment of the right middle lobe and the medial right lower lobe. These findings are likely related to developing pulmonary infarct with associated volume loss. It is also possible that there is pneumonia involve, especially the medial right base. There is a small right effusion which is new. There is no parenchymal cavitation. 4. There is a hyperdense 1 centimeter left upper pole renal lesion for which follow-up evaluation is recommended in the nonacute setting. (She had an outpatient workup that included a cystoscopy and biopsies of her kidneys from inside that were apparently benign.) Review of Systems Status of ROS: Reports: 6 or more systems reviewed and unremarkable except as noted in History and below Const: Reports: fever, chills and fatigue ENMT: Reports: nasal discharge; Denies: throat pain or ear pain Cardio: Reports: edema (R calf a bit more swollen than her normal. ), lightheadedness, shortness of breath with exertion and other (Denies heart palpitaions. ); Denies: chest pain or palpitations Resp: Reports: shortness of breath, cough (Denies productive cough. ) and wheezing GI: Reports: other (Loss of appetite. ); Denies: nausea, vomiting or diarrhea Musculo: Reports: back pain (Under her righ rib cage radiating to her middle back. ) and other (Denies numbness and tingling in extremities. ) Neuro: Reports: headache; Denies: dizziness Endo: Reports: fatigue Allergy/Immuno: Reports: wheezing PFSH [facility] Medical History (Updated 05/05/24 @ 12:34 by Eneida Mathews PA-C) DVT (deep venous thrombosis) ?I82.409 - Acute embolism and thrombosis of unspecified deep veins of unspecified lower extremity (ICD-10) Pulmonary emboli ?I26.99 - Other pulmonary embolism without acute cor pulmonale (ICD-10) Excessive cerumen in both ear canals ?H61.23 - Impacted cerumen, bilateral (ICD-10) AOM (acute otitis media) ?H66.90 - Otitis media, unspecified, unspecified ear (ICD-10) Hyperlipidemia ?E78.5 - Hyperlipidemia, unspecified (ICD-10) Hypertension ?I10 - Essential (primary) hypertension (ICD-10) Radiculitis with lower extremity symptoms (07/25/21) ?M54.10 - Radiculopathy, site unspecified (ICD-10) Cervical intraepithelial neoplasia grade 1 ?N87.0 - Mild cervical dysplasia (ICD-10) Surgical History History of arthroscopy of right knee (03/22/12) ?Z98.890 - Other specified postprocedural states (ICD-10) History of colposcopy ?Z98.890 - Other specified postprocedural states (ICD-10) History of partial hysterectomy (07/2021) ?Z90.711 - Acquired absence of uterus with remaining cervical stump (ICD-10) History of arthroscopy of right shoulder (07/19/18) ?Z98.890 - Other specified postprocedural states (ICD-10) Family History Sister Uterine cancer Father High blood pressure Diabetes Prostate cancer COPD (chronic obstructive pulmonary disease) Macular degeneration Mother Lung cancer Social History What is your current living situation?: I presently have a place to live Problems where you live: no known problems Problems where you live details: NA In the past 12 months, utilities in danger of being shut off: no In past 12 months, lack of transportation kept you from medical appts, meetings, work, or getting things needed for daily living: no In the past 12 mos, have been you worried that your food would run out before you had money to buy more?: never true In the past 12 mos, the food you bought just didn't last and you didn't have money to buy more?: never true Highest level of school completed/degree received: Bachelor's degree Smoking Status: Never smoker Do you use any of these nicotine containing products: Other How often do you have a drink containing alcohol: never How often do you have six or more drinks on one occasion: Never AUDIT-C Alcohol total score: 0 Non-prescribed substance use: marijuana (any form) Caffeine: Yes (Coffee) How often does anyone, including family, friends and others, physically hurt you : never How often does anyone, including family, friends and others, insult or talk down to you: never How often does anyone, including family, friends and others, threaten you with harm: never How often does anyone, including family, friends and others, scream or curse at you: never service: No Meds Home Medications and Allergies Home Medications ?Medication ?Instructions ?Recorded ?Confirmed ?Type cholecalciferol (vitamin D3) 50 2,000 unit PO DAILY 11/10/22 05/05/24 History mcg (2,000 unit) capsule gabapentin 300 mg capsule 300 mg PO TID 11/10/22 05/05/24 History (Neurontin) multivitamin 1 tab PO QAM 11/10/22 05/05/24 History rosuvastatin 10 mg tablet 10 mg PO HS 11/10/22 05/05/24 History estradiol 0.01% (0.1 mg/gram) 1 appful vaginal .MO,FRI 01/26/23 05/05/24 History vaginal cream famotidine 40 mg tablet 40 mg PO DAILY PRN 01/26/23 05/05/24 History losartan 100 mg tablet 100 mg PO DAILY 05/03/24 05/05/24 History ondansetron HCl 4 mg tablet 4 mg PO TID PRN nausea and vomiting 05/05/24 05/05/24 History Allergies Allergy/AdvReac Type Severity Reaction Status Date / Time erythromycin base Allergy Severe Hives Verified 05/03/24 19:20 meloxicam Allergy Verified 05/03/24 19:20 codeine AdvReac Intermediate Gastrointestinal Verified 05/03/24 19:20 Upset lisinopril AdvReac Intermediate Cough Verified 05/03/24 19:20 Exam Narrative: Exam Narrative: Tana is a very pleasant 73 year old who appears comfortable in bed and no acute distress. She is able to hold a conversation with me and is answering my questions appropriately. Const: Vital Signs, click to edit/add: Vital Signs - 24 hr 05/05/24 07:46 05/05/24 08:07 05/05/24 08:07 Temperature 100.9 F H Pulse Rate [Pulse Oximeter] Pulse Rate [Right Pulse Oximeter] 84 Respiratory Rate 18 18 Blood Pressure [Le ft Arm] Blood Pressure [Ri ght Upper Arm] 154/65 H Pulse Oximetry 94 93 93 Oxygen Delivery Me thod Room Air Room Air 05/05/24 09:55 05/05/24 09:55 05/05/24 10:08 Temperature 98.5 F 98.5 F Pulse Rate [Pulse Oximeter] 73 Pulse Rate [Right Pulse Oximeter] Respiratory Rate 20 20 Blood Pressure [Le ft Arm] 143/62 H Blood Pressure [Ri ght Upper Arm] Pulse Oximetry 94 94 Oxygen Delivery Me thod Room Air Room Air Common normals: no apparent distress and oriented x3 HENMT: Common normals: TM's normal bilaterally Face and sinus: sinuses nontender Tympanic membrane: TM's normal bilaterally Throat: tonsils normal and uvula midline Neck & C-Spine: Common normals: no lymphadenopathy Resp: Common normals: no use of accessory muscles and clear to auscultation bilaterally Auscultation: clear to auscultation bilaterally and diminished lung sounds (Slight diminished breath sounds in both lobes. ) bilateral; no crackles, no rales, no rhonchi and no wheezes Cardio: Common normals: regular rate, regular rhythm, S1 normal heart sound, S2 normal heart sound, no gallops, no clicks, no murmurs and no rub Rate: regular rate Rhythm: regular rhythm Heart sounds: S1 normal and S2 normal GI: Common normals: Normal to inspection, nondistended, normoactive bowel sounds present : Common normals: no CVA tenderness Bladder/kidney exam: no CVA tenderness Back & Pelvis: Common normals: no CVA tenderness Other: Tenderness to palpation under the right rib cage wrapping around to the middle back. Extremity: Other: So calf erythema. Right calf is a bit bigger than the left calf. Pedal pulses 3+ bilaterally. Neuro: Common normals: oriented x3 Psych: Common normals: mental status grossly normal, thought process normal and cooperative Thought process: normal thought process Hospitalist - H&P: Result Labs Labs: Short CBC 05/05/24 Range/Units 08:27 WBC 15.09 H (4.50-11.00) K/uL Hgb 11.2 L (12.0-16.0) gm/dL Hct 35.3 (33.0-51.0) % Plt Count 216 (140-440) K/uL BMP 05/05/24 08:27 Sodium 130 L Potassium 3.7 Chloride 100 Carbon Dioxide 22 BUN 8 Creatinine 0.7 Glucose 121 H Calcium 8.3 L Cardiac Enzymes 05/05/24 Range/Units 08:27 Troponin I 0.02 (0.01-0.04) ng/mL Liver Function 05/05/24 Range/Units 08:27 Total Bilirubin 1.0 (0.1-1.5) mg/dL AST 27 (12-35) U/L ALT 18 (4-35) U/L Alkaline Phosphatase 91 (40-150) U/L Albumin 3.6 (3.3-5.0) g/dL ECG ECG interpretation date: 05/05/24 ECG interpretation time: 11:30 Interpretation: Sinus rhythm, 80 beats per minute. No definitive ischemic change. No changes from 05/04/24. Assessment and Plan Assessment and plan (1) Pneumonia: Problem comment: - high fever, leukocytosis, procalcitonin 0.35, CT shows new consolidation and or volume loss right middle lobe and right lower lobe. No hypoxia - continue Zosyn. Received the first dose in the ER. - Pulmonary hygiene with Aerobika and incentive spirometry. - O2 at 94% at 955 am on 05/05/24. Does not need supplemental oxygen. - Patient encouraged to walk multiple times a day. - Ordered PT and OT to help patient understand her new level of normal with her SOB d/t PE. - 1 L of fluids ordered. - Infection control precautions. Status: Acute (2) Fever: Problem comment: - suspected in setting of community-acquired pneumonia. Urinalysis rather unremarkable. Blood culture x2 NGTD, lactate unremarkable - Ordered Tylenol. - Last temperature was 98.5 F at 1008 am on 05/05/24. Status: Acute (3) Embolism, pulmonary with infarction: Problem comment: - CT shows moderate clot burden PE primarily involving the lower lobes, right greater than left, findings probably represent evolving pulmonary infarcts. Likely cause of right rib/lung pain - Continue Eliquis 10mg bid x 7 days, then 5mg bid for at least 3 months - New right sided heart strain noted on imaging on 05/05/24 - Ordered an echo on 05/05/24. Will get 05/06/24 due to no one being able to do it today. Status: Acute (4) DVT (deep venous thrombosis): Problem comment: - Right popliteal vein DVT noted on the venous duplex on 05/03/24. - Continue Eliquis as above. Status: Acute (5) Hyponatremia: Problem comment: - More than likely due to increased fluid intake and lack of eating. - Fluid restriction at 1500 mL. - monitor, rechecking in the morning Status: Acute (6) Nausea: Problem comment: - Continue medications while in the hospital. Status: Acute (7) Hyperlipidemia: Problem comment: - Continue medications while in the hospital. Status: Chronic (8) Hypertension: Problem comment: - Continue medications while in the hospital. Status: Chronic (9) Radiculitis with lower extremity symptoms: Problem comment: - Continue medications while in the hospital. - Patient is on medical marijuana for pain. Patient was informed that we are unable to accommodate this request due to legality. Status: Acute Plan I spent 45 minutes reviewing the patient's history and interviewing the patient. Total Time Spent Total Time Spent: 45 Documented by User: Eneida Mathews PA-C 05/05/24 12:35 Hospitalist- H&P: HPI History of Present Illness Date Seen: 05/05/24 Chief complaint: Fever, pulmonary embolism, covid neg [facility] Medical History (Updated 05/05/24 @ 12:34 by Eneida Mathews PA-C) DVT (deep venous thrombosis) ?I82.409 - Acute embolism and thrombosis of unspecified deep veins of unspecified lower extremity (ICD-10) Pulmonary emboli ?I26.99 - Other pulmonary embolism without acute cor pulmonale (ICD-10) Excessive cerumen in both ear canals ?H61.23 - Impacted cerumen, bilateral (ICD-10) AOM (acute otitis media) ?H66.90 - Otitis media, unspecified, unspecified ear (ICD-10) Hyperlipidemia ?E78.5 - Hyperlipidemia, unspecified (ICD-10) Hypertension ?I10 - Essential (primary) hypertension (ICD-10) Radiculitis with lower extremity symptoms (07/25/21) ?M54.10 - Radiculopathy, site unspecified (ICD-10) Cervical intraepithelial neoplasia grade 1 ?N87.0 - Mild cervical dysplasia (ICD-10) Surgical History History of arthroscopy of right knee (03/22/12) ?Z98.890 - Other specified postprocedural states (ICD-10) History of colposcopy ?Z98.890 - Other specified postprocedural states (ICD-10) History of partial hysterectomy (07/2021) ?Z90.711 - Acquired absence of uterus with remaining cervical stump (ICD-10) History of arthroscopy of right shoulder (07/19/18) ?Z98.890 - Other specified postprocedural states (ICD-10) Family History Sister Uterine cancer Father High blood pressure Diabetes Prostate cancer COPD (chronic obstructive pulmonary disease) Macular degeneration Mother Lung cancer Social History What is your current living situation?: I presently have a place to live Problems where you live: no known problems Problems where you live details: NA In the past 12 months, utilities in danger of being shut off: no In past 12 months, lack of transportation kept you from medical appts, meetings, work, or getting things needed for daily living: no In the past 12 mos, have been you worried that your food would run out before you had money to buy more?: never true In the past 12 mos, the food you bought just didn't last and you didn't have money to buy more?: never true Highest level of school completed/degree received: Bachelor's degree Smoking Status: Never smoker Do you use any of these nicotine containing products: Other How often do you have a drink containing alcohol: never How often do you have six or more drinks on one occasion: Never AUDIT-C Alcohol total score: 0 Non-prescribed substance use: marijuana (any form) Caffeine: Yes (Coffee) How often does anyone, including family, friends and others, physically hurt you : never How often does anyone, including family, friends and others, insult or talk down to you: never How often does anyone, including family, friends and others, threaten you with harm: never How often does anyone, including family, friends and others, scream or curse at you: never service: No Meds Home Medications and Allergies Home Medications ?Medication ?Instructions ?Recorded ?Confirmed ?Type cholecalciferol (vitamin D3) 50 2,000 unit PO DAILY 11/10/22 05/05/24 History mcg (2,000 unit) capsule gabapentin 300 mg capsule 300 mg PO TID 11/10/22 05/05/24 History (Neurontin) multivitamin 1 tab PO QAM 11/10/22 05/05/24 History rosuvastatin 10 mg tablet 10 mg PO HS 11/10/22 05/05/24 History estradiol 0.01% (0.1 mg/gram) 1 appful vaginal .MO,Thu01/26/23 05/05/24 History vaginal cream famotidine 40 mg tablet 40 mg PO DAILY PRN 01/26/23 05/05/24 History losartan 100 mg tablet 100 mg PO DAILY 05/03/24 05/05/24 History ondansetron HCl 4 mg tablet 4 mg PO TID PRN nausea and vomiting 05/05/24 05/05/24 History Allergies Allergy/AdvReac Type Severity Reaction Status Date / Time erythromycin base Allergy Severe Hives Verified 05/03/24 19:20 meloxicam Allergy Verified 05/03/24 19:20 codeine AdvReac Intermediate Gastrointestinal Verified 05/03/24 19:20 Upset lisinopril AdvReac Intermediate Cough Verified 05/03/24 19:20 Assessment and Plan Assessment and plan (1) Pneumonia: Problem comment: - high fever, leukocytosis, procalcitonin 0.35, CT shows new consolidation and o r volume loss right middle lobe and right lower lobe. No hypoxia - continue Zosyn. Received the first dose in the ER. - Pulmonary hygiene with Aerobika and incentive spirometry. - O2 at 94% at 955 am on 05/05/24. Does not need supplemental oxygen. - Patient encouraged to walk multiple times a day. - Ordered PT and OT to help patient understand her new level of normal with her SOB d/t PE. - 1 L of fluids ordered. - Infection control precautions. Status: Acute (2) Fever: Problem comment: - suspected in setting of community-acquired pneumonia. Urinalysis rather unremarkable. Blood culture x2 NGTD, lactate unremarkable - Ordered Tylenol. - Last temperature was 98.5 F at 1008 am on 05/05/24. Status: Acute (3) Embolism, pulmonary with infarction: Problem comment: - CT shows moderate clot burden PE primarily involving the lower lobes, right greater than left, findings probably represent evolving pulmonary infarcts. Likely cause of right rib/lung pain - Continue Eliquis 10mg bid x 7 days, then 5mg bid for at least 3 months - New right sided heart strain noted on imaging on 05/05/24 - Ordered an echo on 05/05/24. Will get 05/06/24 due to no one being able to do it today. Status: Acute (4) DVT (deep venous thrombosis): Problem comment: - Right popliteal vein DVT noted on the venous duplex on 05/03/24. - Continue Eliquis as above. Status: Acute (5) Hyponatremia: Problem comment: - More than likely due to increased fluid intake and lack of eating. - Fluid restriction at 1500 mL. - monitor, rechecking in the morning Status: Acute (6) Nausea: Problem comment: - Continue medications while in the hospital. Status: Acute (7) Hyperlipidemia: Problem comment: - Continue medications while in the hospital. Status: Chronic (8) Hypertension: Problem comment: - Continue medications while in the hospital. Status: Chronic (9) Radiculitis with lower extremity symptoms: Problem comment: - Continue medications while in the hospital. - Patient is on medical marijuana for pain. Patient was informed that we are girish ble to accommodate this request due to legality. Status: Acute Plan I spent 45 minutes reviewing the patient's history and interviewing the patient. Anabel DAMON examined and interviewed this patient. I have reviewed documentation and discussed this with her and agree with plan. Total Time Spent Total Time Spent: Total time spent caring for the patient today was 45 minutes. This includes time spent for the visit reviewing the chart, time spent during the visit, time spent after the visit and documentation and planning in coordination of care.
[2024-05-05 11:32] LABS: Legionella pneumo Ag Urine L. pneumo Negative (Negative); S pneumo Ag Urine S. pneumo Negative (Negative)
--- NOTE | 2024-05-05 11:43 | PC.NURSE ---
Pt arrived to floor at 0955. Pt alert and oriented. Pt had complaints of right side pain rated at a 5. Pt up independently with out any assistive devices. Pt comes from home with spouse. Pt has diminished RLL lung sounds all other moreno clear. Pt given and educated on how to use Aerobika. Pt is maintaining oxygen saturations of 93-95% on RA.
[2024-05-05] MEDS: 0.9 % SODIUM CHLORIDE 1000 ml 1,000 ML 125 ML IV (12:18)
[2024-05-05] MEDS: GABAPENTIN 300 MG CAPSULE PO ×2 (13:44→20:38)
--- NOTE | 2024-05-05 18:55 | PC.NURSE ---
Nursing Care Hours: [id number] pt this shift calm and cooperative, alert and oriented, independent in the room. IV patent, ABX infused. VSS, spo2 stable on RA. Voiding sufficiently. Following fluid restriction.
[2024-05-05] MEDS: APIXABAN 5 MG TABLET 10 MG PO (20:38)
[2024-05-05] MEDS: ROSUVASTATIN CALCIUM 10 MG TABLET PO (20:38)
[2024-05-06] VITALS (7 sets, daily range): BP systolic 106–163; BP diastolic 65–77; PULSE 65–80; RESP 16–18; TEMP 36.3–37; O2SAT 92–95
[2024-05-06] MEDS: ACETAMINOPHEN 500 MG TABLET 1000 MG PO ×2 (02:06→13:29)
[2024-05-06] MEDS: ONDANSETRON 2 MG/ML inj 4 MG IVP ×2 (02:07→13:29)
[2024-05-06] MEDS: PIPERACILLIN/TAZOBACTAM 3.375 GM in 0.9 % SODIUM CHLORIDE Mini-bag 100 ML IVPB ×3 (03:01→15:30)
[2024-05-06 06:30] LABS: Hemoglobin* 10.7 gm/dL (12.0-16.0); Mean Corpuscular HGB Conc 32 gm/dL (32-36); Mean Corpuscular Hemoglobin 28 pg (26-34); Mean Corpuscular Volume 88 fL (80-100); Platelet Count* 253 K/uL (140-440); Red Blood Count 3.86 m/uL (4.00-5.20)
[2024-05-06 06:36] LABS: Slide Review Reflex No
[2024-05-06 06:49] LABS: Chloride* 105 mmol/L (96-114); Sodium* 137 mmol/L (135-149)
[2024-05-06 06:50] LABS: Potassium* 3.7 mmol/L (3.6-5.1)
[2024-05-06 06:52] LABS: Anion Gap 7 mEq/L (7-15); Carbon Dioxide* 25 mmol/L (20-32); Creatinine* 0.7 mg/dL (0.5-1.5); Est. Creatinine Clearance* 40.22; Estimated Glomerular Filt Rate 92 ml/min
[2024-05-06 06:53] LABS: Blood Urea Nitrogen* 8 mg/dL (7-30); Calcium* 8.4 mg/dL (8.4-10.6); Glucose* 107 mg/dL (60-115)
[2024-05-06] MEDS: LOSARTAN POTASSIUM 50 MG TABLET 100 MG PO (08:52)
[2024-05-06] MEDS: GABAPENTIN 300 MG CAPSULE PO ×2 (08:52→13:29)
[2024-05-06] MEDS: APIXABAN 5 MG TABLET 10 MG PO (08:53)
[2024-05-06] MEDS: SODIUM CHLORIDE 0.9 % (FLUSH) 10 ML SYRINGE 5 ML IVF ×2 (10:33→15:30)
--- NOTE | 2024-05-06 12:45 | PM.DS1 ---
DS: Providers Provider Date Seen: 05/06/24 Date of admission: 05/05/24 09:56 Primary care physician: Pat Keys DO Admitting Clinician: Luba Flor MD Consults: 05/05/24 11:55 Consult to Occupational Therapy [CONS] Routine Comment: Reason(s) for OT Consult:: Evaluate and Treat Any Restrictions?:: No Restrictions Consult to Physical Therapy [CONS] Routine Comment: Reason(s) for PT Consult:: Evaluate and Treat Any Restrictions?:: No Restrictions Attending Physician on discharge: KAYLIN Richard, [facility] Date of Discharge: 05/06/24 DS: Diagnosis Discharge Diagnosis (1) Pneumonia: Status: Acute Problem details: As documented with high fever, leukocytosis, procalcitonin 0.35, CT shows new consolidation and or volume loss right middle lobe and right lower lobe. No hypoxia, not requiring supplemental oxygen. Patient was started on Zosyn, transition to oral doxycycline on day of discharge. Encouraged to continue with Pulmonary hygiene with Aerobika and incentive spirometry. Patient encouraged to walk multiple times a day. PT and OT consulted to help patient understand her new level of normal with her SOB d/t PE. -oral doxycycline has been sent to her outpatient pharmacy (2) Fever: Status: Acute Problem details: Resolved. Suspected in setting of community-acquired pneumonia. Urinalysis rather unremarkable. Blood culture x2 NGTD, lactate unremarkable. (3) Embolism, pulmonary with infarction: Status: Acute Problem details: CT shows moderate clot burden PE primarily involving the lower lobes, right greater than left, findings probably represent evolving pulmonary infarcts. Likely cause of right rib/lung pain. Started Eliquis 10mg bid x 7 days, then 5mg bid for at least 3 months New right sided heart strain noted on imaging on 05/05/24. Echocardiogram shows normal left ventricular size, normal wall thickness, normal global systolic function with EF 63%. Mildly enlarged left atrium. Right ventricular cavity size is mildly enlarged, global systolic RV function is normal. -discussed limitations secondary to discomfort, fatigue, shortness of breath. Discussed we will not treat pain with narcotics but will use scheduled Tylenol, lidocaine patch which she can get OTC, Vistaril as needed (4) DVT (deep venous thrombosis): Status: Acute Problem details: - Right popliteal vein DVT noted on the venous duplex on 05/03/24. - Continue Eliquis as above. (5) Hyponatremia: Status: Acute Problem details: - More than likely due to increased fluid intake and lack of eating. - Fluid restriction at 1500 mL. Sodium improved to 137 (6) Nausea: Status: Acute Problem details: - Continue medications while in the hospital. Continues intermittently. This morning and early afternoon without problems, this evening now nauseous again. Encouraged clears. Zofran p.r.n. which she has a prescription for as well from the ED. (7) Hyperlipidemia: Status: Chronic Problem details: Continued on home meds (8) Hypertension: Status: Chronic Problem details: Continued on home meds (9) Radiculitis with lower extremity symptoms: Status: Acute Problem details: Continued on home meds - Patient is on medical marijuana for pain. Patient was informed that we are unable to accommodate this request due to legality. Has chronic low back pain with this. Have scheduled Tylenol, lidocaine patch, Vistaril as needed while she is in the hospital to be continued on discharge if needed. DS: Summary Hospital Course Hospital Course: [age] year old female was admitted to the medical floor for observation, management pneumonia, PE, DVT following 3rd ED visit. Course of care and details as noted above. PT and OT consulted. Carlos discussion with patient regarding having to slow down and relies she will be fatigued, short of breath, uncomfortable for quite some time while she heals from this. She will continue on oral antibiotics as well as apixaban. Recommending [id number] lidocaine patch, Tylenol, p.r.n. Vistaril as needed for low back, rib cage pain. Remainder of chronic medical comorbidities were monitored and managed with home medications. Status at Discharge Overall status at discharge: patient is progressing back to baseline Time Spent with Patient Time attestation: Total time spent providing and/or coordinating discharge services: Time spent: Greater than 30 minutes Exam Narrative: Exam Narrative: PHYSICAL EXAM General: Pleasant, conversant, NAD Cardiovascular: RRR Pulmonary: No dyspnea Neurological: Alert, answering questions appropriately Skin: Warm, dry. Const: Vital Signs, click to edit/add: Vital Signs - 24 hr 05/05/24 15:00 05/05/24 15:00 05/05/24 15:00 Temperature 98.2 F Pulse Rate 63 Pulse Rate [Pulse Oximeter] 66 66 Pulse Rate [Radial ] Respiratory Rate 18 18 Blood Pressure [Le ft Arm] 128/56 L Pulse Oximetry 94 Oxygen Delivery Me thod Room Air Oxygen Flow Rate 05/05/24 19:38 05/05/24 20:36 05/05/24 22:18 Temperature 98.4 F 98.4 F 98.6 F Pulse Rate Pulse Rate [Pulse Oximeter] 82 71 Pulse Rate [Radial ] 82 71 Respiratory Rate 16 16 Blood Pressure [Le ft Arm] 146/72 H 141/79 H Pulse Oximetry 96 94 Oxygen Delivery Me thod Room Air Room Air Oxygen Flow Rate 05/05/24 22:23 05/05/24 22:28 05/06/24 02:06 Temperature 98.6 F Pulse Rate 85 Pulse Rate [Pulse Oximeter] 71 Pulse Rate [Radial ] 71 Respiratory Rate 16 Blood Pressure [Le ft Arm] Pulse Oximetry Oxygen Delivery Me thod Oxygen Flow Rate 05/06/24 02:20 05/06/24 04:43 05/06/24 07:00 Temperature 98.6 F 98.6 F Pulse Rate 74 Pulse Rate [Pulse Oximeter] 80 Pulse Rate [Radial ] 80 Respiratory Rate 16 Blood Pressure [Le ft Arm] 143/74 H Pulse Oximetry 92 Oxygen Delivery Me thod Room Air Oxygen Flow Rate 0 05/06/24 07:30 05/06/24 07:30 Temperature 97.4 F L Pulse Rate Pulse Rate [Pulse Oximeter] 74 74 Pulse Rate [Radial ] Respiratory Rate 16 16 Blood Pressure [Le ft Arm] 155/73 H Pulse Oximetry 94 Oxygen Delivery Me thod Room Air Oxygen Flow Rate 0 DS: Data Data Completed and Pending Labs on day of discharge: Labs from last 24 hours 05/06/24 05:42 WBC 13.50 H RBC 3.86 L Hgb 10.7 L Hct 34.0 MCV 88 MCH 28 MCHC 32 Plt Count 253 Sodium 137 Potassium 3.7 Chloride 105 Carbon Dioxide 25 Anion Gap 7 BUN 8 Creatinine 0.7 Estimated Creat Clear 40.22 Estimated GFR 92 Glucose 107 Calcium 8.4 Discharge Plan Discharge Disposition: Home, Self-Care Date of Admission: 05/05/24 09:56 Attending Provider on Discharge: Eneida Mathews Primary Care Provider: Pat Keys Condition: Improved Anticipated Discharge Date/Time: 05/06/24 12:30 Discharge Medications: New doxycycline hyclate 100 mg capsule 100 mg PO BID Qty: 10 0RF hydroxyzine pamoate [Vistaril] 25 mg capsule 25 mg PO QID PRNQty: 14 0RF Continued estradiol 0.01 % (0.1 mg/gram) cream 1 appful vaginal .MO,FRI famotidine 40 mg tablet 40 mg PO DAILY PRN cholecalciferol (vitamin D3) 50 mcg (2,000 unit) capsule 2,000 unit PO DAILY rosuvastatin 10 mg tablet 10 mg PO HS multivitamin Tablet 1 tab PO QAM gabapentin [Neurontin] 300 mg capsule 300 mg PO TID losartan 100 mg tablet 100 mg PO DAILY Eliquis DVT-PE Treat 30D Start 5 mg (74 tabs) tablets,dose pack See Rx Instructions .ROUTE .COMPLEX Qty: 74 0RF Rx Instructions: orally per package directions ondansetron HCl 4 mg tablet 4 mg PO TID PRN (Reason: nausea and vomiting) Discharge Orders: Discharge Order (Routine); Ordered 05/06/24 Ordered By: Eneida Mathews Patient Education: Doxycycline (By mouth), Hydroxyzine (By mouth), Pulmonary Embolism (GEN), Deep Vein Thrombosis (GEN), Bacterial Pneumonia (GEN) Additional Instructions: Continue oral antibiotic for pneumonia. Continue apixiban/eliquis for pulmonary emboli/DVT for no less than 3 months. Your PCP will guide this management. It is important that you rest and stay well-hydrated. You will continue to feel quite fatigued for some time. You may use an qbqi-[id number] lidocaine patch as well as Tylenol for your back/rib cage pain. You may use Vistaril as needed for pain and nausea as well. You may slowly increase your activity but realized that this may take some time. Do not overdo yourself. Follow up with Dr. Keys in 2 weeks as you have previously scheduled. Activity Level: Activity as Tolerated Discharge Diet: Regular Follow Up Appointments: Pat Keys DO [Primary Care Provider] - Forms: [facility] Info Instructions
--- NOTE | 2024-05-06 16:18 | PM.IMPN1 ---
Progress Note: A&P Assessment and plan (1) Pneumonia: Problem details: As documented with high fever, leukocytosis, procalcitonin 0.35, CT shows new consolidation and or volume loss right middle lobe and right lower lobe. No hypoxia, not requiring supplemental oxygen. Patient was started on Zosyn, transition to oral doxycycline on day of discharge. Encouraged to continue with Pulmonary hygiene with Aerobika and incentive spirometry. Patient encouraged to walk multiple times a day. PT and OT consulted to help patient understand her new level of normal with her SOB d/t PE. -oral doxycycline has been sent to her outpatient pharmacy Status: Acute (2) Fever: Problem details: Resolved. Suspected in setting of community-acquired pneumonia. Urinalysis rather unremarkable. Blood culture x2 NGTD, lactate unremarkable. Status: Acute (3) Embolism, pulmonary with infarction: Problem details: CT shows moderate clot burden PE primarily involving the lower lobes, right greater than left, findings probably represent evolving pulmonary infarcts. Likely cause of right rib/lung pain. Started Eliquis 10mg bid x 7 days, then 5mg bid for at least 3 months New right sided heart strain noted on imaging on 05/05/24. Echocardiogram shows normal left ventricular size, normal wall thickness, normal global systolic function with EF 63%. Mildly enlarged left atrium. Right ventricular cavity size is mildly enlarged, global systolic RV function is normal. -discussed limitations secondary to discomfort, fatigue, shortness of breath. Discussed we will not treat pain with narcotics but will use scheduled Tylenol, lidocaine patch which she can get OTC, Vistaril as needed Status: Acute (4) DVT (deep venous thrombosis): Problem details: - Right popliteal vein DVT noted on the venous duplex on 05/03/24. - Continue Eliquis as above. Status: Acute (5) Hyponatremia: Problem details: - More than likely due to increased fluid intake and lack of eating. - Fluid restriction at 1500 mL. Sodium improved to 137 Status: Acute (6) Nausea: Problem details: - Continue medications while in the hospital. Continues intermittently. This morning and early afternoon without problems, this evening now nauseous again. Encouraged clears. Zofran p.r.n. which she has a prescription for as well from the ED. Status: Acute (7) Hyperlipidemia: Problem details: - Continue medications while in the hospital. Status: Chronic (8) Hypertension: Problem details: - Continue medications while in the hospital. Status: Chronic (9) Radiculitis with lower extremity symptoms: Problem details: - Continue medications while in the hospital. - Patient is on medical marijuana for pain. Patient was informed that we are unable to accommodate this request due to legality. Has chronic low back pain with this. Have scheduled Tylenol, lidocaine patch, Vistaril as needed while she is in the hospital Status: Acute Plan Plan was for patient to discharged today to home following echocardiogram. She is now telling us she simply could not return home this evening. Reiterated course of recovery in setting of PEs, DVT, pneumonia. Including limitations returning to normal activity for a while. Will plan for discharge in the morning. Time Spent With Patient Total time spent: Total time spent caring for the patient today was 60 minutes. This includes time spent for the visit reviewing the chart, time spent during the visit, time spent after the visit and documentation and planning in coordination of care. Subjective Date Seen: 05/06/24 Interval history: Patient is seen twice today. This morning she is up in a chair very talkative, bright, feeling better. Discussed going home and limitations in setting of multiple PE and pneumonia as patient is motivated to go to the gym, walk around the block. I see her again in the afternoon after 4:00 and patient is in bed and simply does not know how she could get dressed and go home. She continues to have pain along her right side in setting of chronic low back pain and now a pneumonia with PEs. She remains nauseous on and off. Exam Narrative: Exam Narrative: PHYSICAL EXAM General: Pleasant, conversant, NAD HEENT: Normocephalic, atraumatic, sclera white, EOMI, oral mucosa moist Cardiovascular: RRR, S1S2. No pitting edema Pulmonary: CTA bilaterally without rhonchi, rales, expiratory wheezes. No dyspnea Neurological: Alert, answering questions appropriately, cranial nerves intact, no focal findings Extremities: No gross joint deformity or swelling. AROMI. Neurovascularly intact Skin: Warm, dry. Const: Vital Signs, click to edit/add: Vital Signs - 24 hr 05/05/24 19:38 05/05/24 20:36 05/05/24 22:18 Temperature 98.4 F 98.4 F 98.6 F Pulse Rate Pulse Rate [Pulse Oximeter] 82 71 Pulse Rate [Radial ] 82 71 Respiratory Rate 16 16 Blood Pressure [Le ft Arm] 146/72 H 141/79 H Pulse Oximetry 96 94 Oxygen Delivery Me thod Room Air Room Air Oxygen Flow Rate 05/05/24 22:23 05/05/24 22:28 05/06/24 02:06 Temperature 98.6 F Pulse Rate 85 Pulse Rate [Pulse Oximeter] 71 Pulse Rate [Radial ] 71 Respiratory Rate 16 Blood Pressure [Le ft Arm] Pulse Oximetry Oxygen Delivery Me thod Oxygen Flow Rate 05/06/24 02:20 05/06/24 04:43 05/06/24 07:00 Temperature 98.6 F 98.6 F Pulse Rate 74 Pulse Rate [Pulse Oximeter] 80 Pulse Rate [Radial ] 80 Respiratory Rate 16 Blood Pressure [Le ft Arm] 143/74 H Pulse Oximetry 92 Oxygen Delivery Me thod Room Air Oxygen Flow Rate 0 05/06/24 07:30 05/06/24 07:30 05/06/24 13:00 Temperature 97.4 F L 98.2 F Pulse Rate Pulse Rate [Pulse Oximeter] 74 74 65 Pulse Rate [Radial ] Respiratory Rate 16 16 16 Blood Pressure [Le ft Arm] 155/73 H 163/77 H Pulse Oximetry 94 95 Oxygen Delivery Me thod Room Air Room Air Oxygen Flow Rate 0 0 Labs Labs: Laboratory Results - last 24 hr 05/06/24 05:42 WBC 13.50 H RBC 3.86 L Hgb 10.7 L Hct 34.0 MCV 88 MCH 28 MCHC 32 Plt Count 253 Sodium 137 Potassium 3.7 Chloride 105 Carbon Dioxide 25 Anion Gap 7 BUN 8 Creatinine 0.7 Estimated Creat Clear 40.22 Estimated GFR 92 Glucose 107 Calcium 8.4
[2024-05-06] MEDS: LIDOCAINE 5% PATCH 1 PATCH TRANSDERMA (16:37)
--- NOTE | 2024-05-06 17:38 | PC.NURSE ---
Addendum entered by Maria L Garcia RN 05/06/24 17:46: Pt d/c at 1733. Original Note: DISCHARGE NOTE: Pt pleasant, A&O. Pt reports pain as tolerable, educated on using Tylenol and lidocaine patches at home as well as Vistaril. Pt acknowledges understanding. SOB with exertion, improves at rest, 93% on room air. Denies CP. Intermittent nausea reported, saltines given, pt acknowledges understanding of using Zofran at home as well as Vistaril for nausea. No emesis. Discharge instructions given both verbally and written. Pt signed pt belongings form and left with all belongings. IV d/c with catheter intact. Pt d/c @ 1753 with her . pushed pt out in a wheelchair.
== END 2024-05-06 17:33 | disposition home or self-care (01) ==
LOC: ED 09:37 → MEDSURG 10:05
PROVIDERS: Physician Assistant; Admitting Provider Family Medicine; Emergency Provider Family Medicine; PCP Family Medicine; Visit Provider Family Medicine
DX: I26.99 Other pulmonary embolism without acute cor pulmonale (principal); J18.9 Pneumonia, unspecified organism; I82.431 Acute embolism and thrombosis of right popliteal vein; E87.1 Hypo-osmolality and hyponatremia; R79.1 Abnormal coagulation profile; D72.829 Elevated white blood cell count, unspecified; R50.9 Fever, unspecified; R07.89 Other chest pain; R07.81 Pleurodynia; R06.02 Shortness of breath; R42 Dizziness and giddiness; R53.83 Other fatigue; M54.9 Dorsalgia, unspecified; R11.0 Nausea; R06.2 Wheezing; R51.9 Headache, unspecified; R60.0 Localized edema; M54.50 Low back pain, unspecified; F12.90 Cannabis use, unspecified, uncomplicated; E78.5 Hyperlipidemia, unspecified; I10 Essential (primary) hypertension; M54.10 Radiculopathy, site unspecified; F17.200 Nicotine dependence, unspecified, uncomplicated; Z79.01 Long term (current) use of anticoagulants; Z90.711 Acquired absence of uterus with remaining cervical stump; Z11.52 Encounter for screening for COVID-19; Z98.890 Other specified postprocedural states
CPT/HCPCS: 36415; 71260; 80048; 80053; 83605; 83880; 84145; 84484; 85025; 85027; 87449; 87631; 87899; 93005; 93306; 94761; 96361; 96365; 96366; 96375; 96376; 97116; 97162; 97165; 97530; 99284; 99285; G0378; A9270; J2405; J2543; J7030; Q9967

== ENCOUNTER 2025-08-02 07:54 | Outpatient (CLI) | payer MEDICARE, BC, SELFPAY ==
--- NOTE | 2025-08-02 08:15 | CRLHL7_ITS ---
For Patients: As a result of the Century Cures Act, medical imaging exams and procedure reports are released immediately into your electronic medical record. You may view this report before your referring provider. If you have questions, please contact your health care provider. INDICATION: BILATERAL SCREENING MAMMOGRAM, ASYMPTOMATIC 74 Y/O FEMALE COMPARISON: 01/07/2024, 09/01/2022, 08/27/2021 TECHNIQUE: Digital mammogram in CC and MLO projections including computer-aided detection (CAD) and tomosynthesis. BREAST COMPOSITION: There are scattered areas of fibroglandular density. FINDINGS: No suspicious findings. ASSESSMENT: BI-RADS 1 Negative RECOMMENDATION: Annual screening mammogram. A lay language report of this examination will be provided to the patient. Dictated by: Sherwin Martin MD @ 08/02/2025 09:21:02 (Electronically Signed)
== END 2025-08-02 07:55 | disposition home or self-care (01) ==
LOC: MAMMO 07:55
PROVIDERS: PCP Family Medicine; Visit Provider Family Medicine
DX: Z12.31 Encounter for screening mammogram for malignant neoplasm of breast (principal)
CPT/HCPCS: 77063; 77067

== ENCOUNTER 2025-08-03 15:44 | Outpatient (CLI) | payer MEDICARE, BC, SELFPAY ==
[2025-08-08 17:48] LABS: Pap Test Digital Imaging Done
[2025-08-09 02:58] LABS: HPV Source Cervical
== END 2025-08-03 15:45 | disposition home or self-care (01) ==
PROVIDERS: PCP Family Medicine; Visit Provider Obstetrics & Gynecology
DX: Z12.4 Encounter for screening for malignant neoplasm of cervix (principal); Z11.51 Encounter for screening for human papillomavirus (HPV)
CPT/HCPCS: 87624; 87625; 88141; 88142; 88175